=== PATIENT | female | born 1980 | race Caucasian/White ===

== ENCOUNTER 2016-05-31 13:56 | Inpatient (IN) | payer OTHER ==
[~2016-05-31] VITALS: Ht 157.5 cm; Wt 82.0 kg
[2016-05-31 13:58] VITALS: Ht 157.5 cm; Wt 82.0 kg
[2016-05-31] MEDS ORDERED: LABETALOL HCL 20MG INJ IV ONE ×3 (14:30→18:00)
[2016-05-31 14:53] LABS: ADD SCAN DIFF NO
[2016-05-31 14:54] LABS: BASOPHILS % 0.2 % (0.0-2.0); EOSINOPHILS # 0.1 10^3/ul (0.0-0.5); EOSINOPHILS % 0.5 % (0.0-7.0); HEMOGLOBIN 12.7 g/dl (12.0-16.0); LYMPHOCYTES # 1.6 10^3/ul (0.8-2.9); LYMPHOCYTES % 12.5 % (15.0-51.0); MEAN CORPUSCULAR HEMOGLOBIN 28.5 pg (29.0-33.0); MEAN CORPUSCULAR HGB CONC 32.6 g/dl (32.0-37.0); MEAN CORPUSCULAR VOLUME 87.4 fl (82.0-101.0); MEAN PLATELET VOLUME 11.1 fl (7.4-10.4); MONOCYTE # 0.6 10^3/ul (0.3-0.9); MONOCYTES % 4.5 % (0.0-11.0); NEUTROPHIL # 10.5 10^3/ul (1.6-7.5); NEUTROPHILS % 81.8 % (39.0-77.0); PLATELET COUNT 297 10^3/UL (140-415); RED BLOOD COUNT 4.46 10^6/ul (4.20-5.40); RED CELL DISTRIBUTION WIDTH 13.2 % (11.5-14.5); WHITE BLOOD COUNT 12.8 10^3/ul (4.8-10.8)
[2016-05-31] MEDS ORDERED: ONDANSETRON 4 MG INJ IV PRN (15:00)
[2016-05-31] MEDS ORDERED: ACETAMINOPHEN 325 MG TAB PO PRN (15:00)
[2016-05-31 15:07] LABS: POTASSIUM 3.4 mmol/L (3.5-5.1)
[2016-05-31 15:09] LABS: ALBUMIN/GLOBULIN RATIO 1.02; BILIRUBIN,INDIRECT 0.5 mg/dl (0-1.1); BILIRUBIN,TOTAL 0.5 mg/dl (0.2-1.3); CREATININE 0.68 mg/dl (0.44-1.00); TOTAL PROTEIN 7.9 g/dl (6.1-8.1)
[2016-05-31 15:10] LABS: CALCIUM 9.4 mg/dl (8.4-10.2)
--- NOTE | 2016-05-31 15:10 | RADRPT ---
PROCEDURE: US OB. CLINICAL INDICATION: Hypertension. TECHNIQUE: Multiple sonographic images of the uterus were obtained. The images were revi ewed on a PACS workstation. COMPARISON: No prior studies are available for comparison. FINDINGS: There is a single live intrauterine gestation. heart rate is 152 beats per minute. Measurements were made in order to determine age. The results are as follows: BPD = 4.62 cm. HC = 17.03 cm. AC = 14.26 cm. FL = 3.13 cm. Estimated weight is 306 +/- 46 grams. LMP growth percentile is 69 %. Menstrual age by ultrasound dates is 19 weeks 5 days. The estimated date of delivery is 10/20/2016. Maximum vertical pocket of amniotic fluid is 5.2 cm. Position is cephalic and placenta is posterior grade 0. There is no evidence for an abruption or vivine centa previa. IMPRESSION: 1. Single live intrauterine gestation of 19 weeks 5 days menstrual age by ultrasound dates. 2. The estimated date of delivery is 10/20/2016. RPTAT: QQ .Raf Skelton MD, Date Time Electronically viewed and signed by .Raf Skelton MD, on 05/31/2016 15:09 .R/
[2016-05-31 15:15] LABS: ADD UMIC YES; URINE BILIRUBIN (Dip) NEGATIVE (NEGATIVE); URINE BLOOD (Dip) 2+ (NEGATIVE); URINE COLOR LT. YELLOW (YELLOW); URINE GLUCOSE (Dip) NEGATIVE (NEGATIVE); URINE KETONES (Dip) 3+ (NEGATIVE); URINE LEUKOCYTE ESTERASE (Dip) NEGATIVE (NEGATIVE); URINE NITRITE (Dip) NEGATIVE (NEGATIVE); URINE TOTAL PROTEIN (Dip) TRACE (NEGATIVE); URINE UROBILINOGEN (Dip) 0.2 E.U./dL (0.1-1.0)
[2016-05-31] MEDS ORDERED: SOD CHLORIDE 0.9% 1,000 ML IV STA (15:26)
[2016-05-31] MEDS ORDERED: MAGNESIUM SULFATE 4 GM/100 ML 100 ML IVPB ONE (15:30)
[2016-05-31 15:35] LABS: BACTERIA,URINE MODERATE; SQUAMOUS EPITHELIAL CELL,UR MODERATE
--- NOTE | 2016-05-31 16:18 | ERA ---
ER Documentation Chief Complaint Date/Time DATE: 05/31/16 TIME: 16:16 Chief Complaint sent by pmd for htn , 19 weeks preg h/o pre eclampsia last preg HPI Patient is a 36-year-old female with previous preeclampsia who presents with hypertension. The patient is 19 weeks dates. She had high blood pressure at her doctor's office who sent her to the ER for admission. She denies pain. She has no vaginal bleeding. She has had no leg swelling. She has no seizures. She has had no treatment as of yet. Upon review of old medical records the patient one previous visit in 2006 when she did have preeclampsia. Her primary doctor is Dr. Nyasia Peck. ROS All systems reviewed and are negative except as per history of present illness. Medications Home Meds No Active Prescriptions or Reported Meds Allergies Allergies: Coded Allergies: No Known Allergy (Verified , 05/31/16) PMhx/Soc Preeclampsia with previous pregnancies FmHx Family History: No diabetes Physical Exam Vitals Vital Signs Date Time Temp Pulse Resp B/P Pulse Ox O2 Delivery O2 Flow Rate FiO2 05/31/16 15:16 98.3 105 18 195/123 100 Room Air 05/31/16 13:58 98.1 122 18 229/123 100 Physical Exam Const: No acute distress Head: Atraumatic Eyes: Normal Conjunctiva ENT: Normal External Ears, Nose and Mouth. Neck: Full range of motion..~ No meningismus. Resp: Clear to auscultation bilaterally Cardio: Regular rate and rhythm, no murmurs Abd: Soft, non tender, non distended. Normal bowel sounds Skin: No petechiae or rashes Back: No midline or flank tenderness Ext: No cyanosis, or edema Neur: Awake and alert Psych: Normal Mood and Affect Result Diagram: 05/31/16 1442 05/31/16 1442 Results 24 hrs Laboratory Tests Test 05/31/16 14:30 05/31/16 14:42 Urine Color LT. YELLOW Urine Clarity CLEAR Urine pH 5.5 Urine Specific House >=1.030 Urine Ketones 3+ Urine Nitrite NEGATIVE Urine Bilirubin NEGATIVE Urine Urobilinogen 0.2 E.U./dL Urine Leukocyte Esterase NEGATIVE Urine Microscopic RBC 2-5/HPF Urine Microscopic WBC 0-2/HPF Urine Squamous Epithelial Cells MODERATE Urine Bacteria MODERATE Urine Hemoglobin 2+ Urine Glucose NEGATIVE% Urine Total Protein TRACE White Blood Count 12.810^3/ul Red Blood Count 4.4610^6/ul Hemoglobin 12.7g/dl Hematocrit 39.0% Mean Corpuscular Volume 87.4fl Mean Corpuscular Hemoglobin 28.5pg Mean Corpuscular Hemoglobin Concent 32.6g/dl Red Cell Distribution Width 13.2% Platelet Count 90949^3/UL Mean Platelet Volume 11.1fl Neutrophils % 81.8% Lymphocytes % 12.5% Monocytes % 4.5% Eosinophils % 0.5% Basophils % 0.2% Nucleated Red Blood Cells % 0.0/100WBC Neutrophils # 10.510^3/ul Lymphocytes # 1.610^3/ul Monocytes # 0.610^3/ul Eosinophils # 0.110^3/ul Basophils # 0.010^3/ul Nucleated Red Blood Cells # 0.010^3/ul Sodium Level 134mmol/L Potassium Level 3.4mmol/L Chloride Level 100mmol/L Carbon Dioxide Level 22mmol/L Anion Gap 15 Blood Urea Nitrogen 9mg/dl Creatinine 0.68mg/dl Glucose Level 89mg/dl Calcium Level 9.4mg/dl Total Bilirubin 0.5mg/dl Direct Bilirubin 0.00mg/dl Indirect Bilirubin 0.5mg/dl Aspartate Amino Transf (AST/SGOT) 42IU/L Alanine Aminotransferase (ALT/SGPT) 61IU/L Alkaline Phosphatase 94IU/L Total Protein 7.9g/dl Albumin 4.0g/dl Globulin 3.90g/dl Albumin/Globulin Ratio 1.02 Current Medications Medications (Trade) Dose Ordered Sig/Ashleigh Route PRN Reason Start Time Stop Time Status Last Admin Dose Admin Labetalol HCl (Labetalol) 20 mg ONCE ONCE IV 05/31/16 14:30 05/31/16 14:34 DC 05/31/16 14:56 Ondansetron HCl (Zofran Inj) 4 mg BRIDGE ORDER PRN IV NAUSEA AND/OR VOMITING 05/31/16 15:00 06/01/16 14:59 Acetaminophen (Tylenol Tab) 650 mg ER BRIDGE PRN PO MILD PAIN/FEVER 05/31/16 15:00 06/01/16 14:59 Labetalol HCl 20 mg 20 mg ONCE ONCE IV 05/31/16 15:30 05/31/16 15:31 DC 05/31/16 15:35 Magnesium Sulfate 100 ml @ 25 mls/hr ONCE ONCE IVPB 05/31/16 15:30 05/31/16 19:29 05/31/16 15:45 Sodium Chloride (NS) 1,000 ml @ 1,000 mls/hr Q1H STAT IV 05/31/16 15:26 05/31/16 16:25 05/31/16 15:45 Procedures/MDM Patient is a 36-year-old female who presents with -induced hypertension. Her blood pressure was over 200 systolic upon arrival and she needed 2 doses of labetalol 20 mg IV. The patient was given magnesium 4 g over [address] Allen. The patient will be admitted to him as well as he is the labor arrest special education supervisor. The patient will be admitted to a medical surgical bed. She is approximately 19 weeks but an ultrasound has been ordered to determine dates. The ultrasound showed a live IUP at 19 weeks and 5 days. There is trace protein in the urine. The patient is a high risk at this time. There is no leg swelling or seizure activity at this time. Critical Care: Time: 35 minutes excluding all billable procedures. Treatments/Evaluations: Close monitoring and treatment of unstable vital signs, cardiorespiratory, and neurologic status, while maintaining tight balance of fluid, respiratory, and cardiac interventions. Departure Diagnosis: Primary Impression: induced hypertension Qualified Code: O13.2 - induced hypertension, second trimester Condition: Serious ROSITA PORTILLO MD May 31, 2016 16:18
--- NOTE | 2016-05-31 18:32 | CONS ---
Date/Time of Note Date/Time of Note DATE: 05/31/16 TIME: 18:22 Consultation Date/Type/Reason Admit Date/Time May 31, 2069 OB emergency room consult and admission This patient is a 36 years old 5 para 4 who came to emergency room with very high blood pressure is now close to 20 weeks first blood pressure reading was 229/123 in reviewing her past medical history she had 4 other deliveries 1 spontaneous 1 first delivery followed by 3 she says with her second at the severe preeclampsia no other significant finding in her past history On medical examination she is a well-developed well-nourished lady in early . Her ear nose throat appear to be normal neck is normal no neck vein distention no thyromegaly no lymph node enlargement anywhere in her body. Her chest is clear to auscultation percussion no rales Heart normal sinus rhythm no murmur no abnormal signal Chest is clear no rales Abdomen is soft no contractions no tenderness no CVA tenderness heart tones at this time is around 1 4045 no contraction lower extremity slight edema 3+ knee-jerk reflex . Her blood pressure examined her was 195/123 on the ultrasound study that was done the estimated is 19 weeks and 5 days with EDC of 10/02/2016 estimated weight was 306 g 46 g normally grown fetus with these findings with is indicative of severe preeclampsia at this very early she will be admitted in the hospital. We will try to bring the blood pressure under control and will decide with her to terminate this in consultation with the patient Laboratory Tests Test 05/31/16 14:30 05/31/16 14:42 Urine Color LT. YELLOW Urine Clarity CLEAR Urine pH 5.5 Urine Specific [place] >=1.030 Urine Ketones 3+ Urine Nitrite NEGATIVE Urine Bilirubin NEGATIVE Urine Urobilinogen 0.2 E.U./dL Urine Leukocyte Esterase NEGATIVE Urine Microscopic RBC 2-5/HPF Urine Microscopic WBC 0-2/HPF Urine Squamous Epithelial Cells MODERATE Urine Bacteria MODERATE Urine Hemoglobin 2+ Urine Glucose NEGATIVE% Urine Total Protein TRACE White Blood Count 12.810^3/ul Red Blood Count 4.4610^6/ul Hemoglobin 12.7g/dl Hematocrit 39.0% Mean Corpuscular Volume 87.4fl Mean Corpuscular Hemoglobin 28.5pg Mean Corpuscular Hemoglobin Concent 32.6g/dl Red Cell Distribution Width 13.2% Platelet Count 67324^3/UL Mean Platelet Volume 11.1fl Neutrophils % 81.8% Lymphocytes % 12.5% Monocytes % 4.5% Eosinophils % 0.5% Basophils % 0.2% Nucleated Red Blood Cells % 0.0/100WBC Neutrophils # 10.510^3/ul Lymphocytes # 1.610^3/ul Monocytes # 0.610^3/ul Eosinophils # 0.110^3/ul Basophils # 0.010^3/ul Nucleated Red Blood Cells # 0.010^3/ul Sodium Level 134mmol/L Potassium Level 3.4mmol/L Chloride Level 100mmol/L Carbon Dioxide Level 22mmol/L Anion Gap 15 Blood Urea Nitrogen 9mg/dl Creatinine 0.68mg/dl Glucose Level 89mg/dl Calcium Level 9.4mg/dl Total Bilirubin 0.5mg/dl Direct Bilirubin 0.00mg/dl Indirect Bilirubin 0.5mg/dl Aspartate Amino Transf (AST/SGOT) 42IU/L Alanine Aminotransferase (ALT/SGPT) 61IU/L Alkaline Phosphatase 94IU/L Total Protein 7.9g/dl Albumin 4.0g/dl Globulin 3.90g/dl Albumin/Globulin Ratio 1.02 Beta HCG, Quantitative 89927.0mIU/ml Current Medications Medications (Trade) Dose Ordered Sig/Ashleigh Route PRN Reason Start Time Stop Time Status Last Admin Dose Admin Labetalol HCl (Labetalol) 20 mg ONCE ONCE IV 05/31/16 14:30 05/31/16 14:34 DC 05/31/16 14:56 20 MG Ondansetron HCl (Zofran Inj) 4 mg BRIDGE ORDER PRN IV NAUSEA AND/OR VOMITING 05/31/16 15:00 06/01/16 14:59 Acetaminophen (Tylenol Tab) 650 mg ER BRIDGE PRN PO MILD PAIN/FEVER 05/31/16 15:00 06/01/16 14:59 Labetalol HCl 20 mg 20 mg ONCE ONCE IV 05/31/16 15:30 05/31/16 15:31 DC 05/31/16 15:35 20 MG Magnesium Sulfate 100 ml @ 25 mls/hr ONCE ONCE IVPB 05/31/16 15:30 05/31/16 19:29 05/31/16 15:45 25 MLS/HR Sodium Chloride (NS) 1,000 ml @ 1,000 mls/hr Q1H STAT IV 05/31/16 15:26 05/31/16 16:25 DC 05/31/16 15:45 1,000 MLS/HR Labetalol HCl (Labetalol) 20 mg ONCE ONCE IV 05/31/16 18:00 05/31/16 18:01 DC Constitutional: No chills, No diaphoresis, No disoriented, No febrile, No improved, No no complaints, No other, No poor po, No requiring IVF, No requiring O2 Eyes: No discharge, No no complaints, No other, No pain, No redness, No visual change ENT: No bleeding, No congestion, No discharge, No dysphagia, No no complaints, No other, No pain, No sore throat Respiratory: No cough, No no complaints, No other, No pain, No pleuritic pain, No shortness of breath, No sputum, No wheezing Cardiovascular: other (Blood pressure 195/123), No chest pain, No edema, No lightheadedness, No no complaints, No orthopenea , No palpitations, No paroxysmal nocturnal dyspnea Gastrointestinal: No blood, No constipation, No decreased appetite, No diarrhea , No flatus, No nausea, No no complaints, No other, No pain, No passing stool, No vomiting Genitourinary: other (Pelvic exam was not performed), No bleeding, No discharge, No dysuria, No flank pain, No hematuria, No no complaints Musculoskeletal: No back pain, No bone/joint pain, No neck pain, No no complaints, No other, No restricted range of motion, No swelling Skin: No bruising, No erythema, No laceration, No no complaints, No other, No pruritis, No rash, No skin lesions Neurologic: No confusion, No dizziness, No focal-weakness, No headache, No no complaints, No other, No seizure, No syncope Endocrine: other (Knee-jerk reflex is 3+), No dry skin, No no complaints, No polydypsia, No polyuria, No temp intolerance Lymphatic: No adenopathy, No lymphadema, No no complaints, No other, No tender nodes Psychological: No anxiety, No confusion, No depression, No nl mood/affect, No no complaints, No other, No suicidal Additional Comments As I mentioned we will admit the patient for workup and treatment of her extremely high blood pressure Exam/Review of Systems Vital Signs Vitals Vital Signs Date Time Temp Pulse Resp B/P Pulse Ox O2 Delivery O2 Flow Rate FiO2 05/31/16 17:29 98 20 188/107 100 Room Air 05/31/16 15:16 98.3 Results Result Diagram: 05/31/16 1442 05/31/16 1442 Results 24 hrs Laboratory Tests Test 05/31/16 14:30 05/31/16 14:42 Urine Color LT. YELLOW Urine Clarity CLEAR Urine pH 5.5 Urine Specific [place] >=1.030 H Urine Ketones 3+ H Urine Nitrite NEGATIVE Urine Bilirubin NEGATIVE Urine Urobilinogen 0.2 E.U./dL Urine Leukocyte Esterase NEGATIVE Urine Microscopic RBC 2-5 Urine Microscopic WBC 0-2 Urine Squamous Epithelial Cells MODERATE Urine Bacteria MODERATE Urine Hemoglobin 2+ H Urine Glucose NEGATIVE Urine Total Protein TRACE White Blood Count 12.8 H Red Blood Count 4.46 Hemoglobin 12.7 Hematocrit 39.0 Mean Corpuscular Volume 87.4 Mean Corpuscular Hemoglobin 28.5 L Mean Corpuscular Hemoglobin Concent 32.6 Red Cell Distribution Width 13.2 Platelet Count 297 Mean Platelet Volume 11.1 H Neutrophils % 81.8 H Lymphocytes % 12.5 L Monocytes % 4.5 Eosinophils % 0.5 Basophils % 0.2 Nucleated Red Blood Cells % 0.0 Neutrophils # 10.5 H Lymphocytes # 1.6 Monocytes # 0.6 Eosinophils # 0.1 Basophils # 0.0 Nucleated Red Blood Cells # 0.0 Sodium Level 134 L Potassium Level 3.4 L Chloride Level 100 Carbon Dioxide Level 22 Anion Gap 15 Blood Urea Nitrogen 9 Creatinine 0.68 Glucose Level 89 Calcium Level 9.4 Total Bilirubin 0.5 Direct Bilirubin 0.00 Indirect Bilirubin 0.5 Aspartate Amino Transf (AST/SGOT) 42 Alanine Aminotransferase (ALT/SGPT) 61 Alkaline Phosphatase 94 Total Protein 7.9 Albumin 4.0 Globulin 3.90 H Albumin/Globulin Ratio 1.02 Beta HCG, Quantitative 33193.0 Medications Medications Current Medications Magnesium Sulfate (Magnesium Sulfate 4 Gm/100 ml) 100 ml @ 25 mls/hr ONCE ONCE IVPB Last administered on 05/31/16t 15:45; Admin Dose 25 MLS/HR; Start 01/06 at 15:30; Stop 05/31/16 at 19:29 ANJANA RICHARD MD May 31, 2016 18:32
[2016-05-31 19:44] VITALS: BP 166/72; PULSE 74; RESP 17
[2016-05-31 19:45] VITALS: TEMP 98.1
[2016-05-31] MEDS: METHYLDOPA 250 MG TAB PO SCH (21:46)
--- NOTE | 2016-05-31 23:11 | PN ---
Date/Time of Note Date/Time of Note DATE: 05/31/16 TIME: 23:04 OB Subjective Subjective Subjective NO SUBJECTIVE SYMPTOMS HX OF SECOND AND THIRD COMPLICATED BY HTN FH OF HTN (MOM) LAST SECTION 9YRS AGO ONLY ONE TIME CK IN 9YRS OB Objective Objective Objective latest BP 163/92 u/s GA 19W5D 306 +-40GM OB Assessment/Plan Other Assessment: IUP 19W5D MORE LIKELY CHRONIC HYPERTENSION Other plan: START METHYL DOPA 250MG TID TO START WITH LUCAS CONSULT MIRZA REY MD May 31, 2016 23:11
[2016-06-01] MEDS: METHYLDOPA 250 MG TAB PO SCH ×2 (06:16→13:59)
[2016-06-01] MEDS: NACL 0.9% 3 ML SYG IV SCH ×2 (10:42→17:58)
--- NOTE | 2016-06-01 18:03 | PN ---
Date/Time of Note Date/Time of Note DATE: 06/01/16 TIME: 17:58 OB Subjective Subjective Subjective Denies any headache, blurred vision, epigastric pain, leaking of fluid, vaginal bleeding, uterine contractions. OB Objective Objective Objective GA: A&O, NAD Abdomen: Soft, gravid, fundal height consistent with gestational age No abdominal tenderness Extremities: No calf tenderness,, no click, no cords palpable, Hematology - 72 Hrs Test 05/31/16 14:42 White Blood Count 12.810^3/ul (4.8-10.8) H Red Blood Count 4.4610^6/ul (4.20-5.40) Hemoglobin 12.7g/dl (12.0-16.0) Hematocrit 39.0% (37.0-47.0) Mean Corpuscular Volume 87.4fl (82.0-101.0) Mean Corpuscular Hemoglobin 28.5pg (29.0-33.0) L Mean Corpuscular Hemoglobin Concent 32.6g/dl (32.0-37.0) Red Cell Distribution Width 13.2% (11.5-14.5) Platelet Count 79525^3/UL (140-415) Mean Platelet Volume 11.1fl (7.4-10.4) H Neutrophils % 81.8% (39.0-77.0) H Lymphocytes % 12.5% (15.0-51.0) L Monocytes % 4.5% (0.0-11.0) Eosinophils % 0.5% (0.0-7.0) Basophils % 0.2% (0.0-2.0) Nucleated Red Blood Cells % 0.0/100WBC (0.0-0.0) Neutrophils # 10.510^3/ul (1.6-7.5) H Lymphocytes # 1.610^3/ul (0.8-2.9) Monocytes # 0.610^3/ul (0.3-0.9) Eosinophils # 0.110^3/ul (0.0-0.5) Basophils # 0.010^3/ul (0.0-0.1) Nucleated Red Blood Cells # 0.010^3/ul (0.0-0.0) Chemistry Test 05/31/16 14:42 Sodium Level 134mmol/L (135-144) L Potassium Level 3.4mmol/L (3.5-5.1) L Chloride Level 100mmol/L (97-110) Carbon Dioxide Level 22mmol/L (21-31) Anion Gap 15 (8-16) Blood Urea Nitrogen 9mg/dl (7-20) Creatinine 0.68mg/dl (0.44-1.00) Glucose Level 89mg/dl (70-220) Calcium Level 9.4mg/dl (8.4-10.2) Total Bilirubin 0.5mg/dl (0.2-1.3) Direct Bilirubin 0.00mg/dl (0.00-0.20) Indirect Bilirubin 0.5mg/dl (0-1.1) Aspartate Amino Transf (AST/SGOT) 42IU/L (15-46) Alanine Aminotransferase (ALT/SGPT) 61IU/L (13-69) Alkaline Phosphatase 94IU/L (42-121) Total Protein 7.9g/dl (6.1-8.1) Albumin 4.0g/dl (3.3-4.9) Globulin 3.90g/dl (1.3-3.2) H Albumin/Globulin Ratio 1.02 Beta HCG, Quantitative 83457.0mIU/ml Chemistry Test 05/31/16 14:42 Sodium Level 134mmol/L (135-144) Potassium Level 3.4mmol/L (3.5-5.1) Chloride Level 100mmol/L (97-110) Carbon Dioxide Level 22mmol/L (21-31) Anion Gap 15 (8-16) Blood Urea Nitrogen 9mg/dl (7-20) Creatinine 0.68mg/dl (0.44-1.00) Glucose Level 89mg/dl (70-220) Calcium Level 9.4mg/dl (8.4-10.2) Total Bilirubin 0.5mg/dl (0.2-1.3) Direct Bilirubin 0.00mg/dl (0.00-0.20) Indirect Bilirubin 0.5mg/dl (0-1.1) Aspartate Amino Transf (AST/SGOT) 42IU/L (15-46) Alanine Aminotransferase (ALT/SGPT) 61IU/L (13-69) Alkaline Phosphatase 94IU/L (42-121) Total Protein 7.9g/dl (6.1-8.1) Albumin 4.0g/dl (3.3-4.9) Globulin 3.90g/dl (1.3-3.2) Albumin/Globulin Ratio 1.02 Beta HCG, Quantitative 21601.0mIU/ml OB Assessment/Plan Other Assessment: IUP at 19 weeks and 2 days Elevated blood pressure. Labile. Likely chronic hypertension Patient with prior history of preeclampsia in prior to pregnancies status post delivery at 7 and 8 months Currently blood pressure is still labile, with methyldopa 3 times daily. Jimmy' s between 110-170/90 Will start baby aspirin I would think patient would benefit from slow release calcium channel blockers, nifedipine XR 60 Will be started today and will replace methdopa continue 24 hour protein collection for baseline We will continue follow-up with blood pressures Low-sodium diet TIFF CHURCHILL MD Jun 01, 2016 18:02
[2016-06-01] MEDS: ASPIRIN 81 MG TAB PO SCH (18:08)
[2016-06-01] MEDS ORDERED: hydrALAzine 20 MG INJ ONE (19:15)
[2016-06-01] MEDS: NIFEdipine (XL) 60 MG TAB PO SCH (19:26)
[2016-06-01] MEDS ORDERED: hydrALAzine 20 MG INJ IV ONE ×2 (19:30→20:00)
[2016-06-02] MEDS: ASPIRIN 81 MG TAB PO SCH (08:55)
[2016-06-02] MEDS: NIFEdipine (XL) 60 MG TAB PO SCH (08:55)
[2016-06-02 12:00] LABS: SCRET 0.59 mg/dl (0.44-1.00)
--- NOTE | 2016-06-02 12:13 | PN ---
Date/Time of Note Date/Time of Note DATE: 06/02/16 TIME: 12:08 OB Subjective Subjective Subjective June 02, 2069 Hospital around This patient is a 36 years old 5 para 4 who came to emergency room 2 days ago with very high blood pressure is now close to 20 weeks .Her first blood pressure reading was 229/123. On reviewing her past medical history, she had 4 other deliveries; first delivery was spontaneous , followed by 3 She says with her second developed severe preeclampsia No other significant finding in her past history With treatment she slightly improved .Today her blood pressure running around 145/86 . Her PIH studies and a 24-hour urine collection is in process Her blood pressure medication was changed to long acting Procardia XL 60 mg daily. Today again she has a fairly sharp knee-jerk reflex No contraction heart tone is normal On physical examination she has not changed much from the previous findings. Dr. Grace he has seen the patient Laboratory Tests Test 06/02/16 08:30 Urine Random Creatinine 41.14mg/dl Urine Collection Duration 24hrs Urine Total Volume 24 Hours 3000ml/24hrs Urine Creatinine Timed 24hrs Creatinine Clearance 145.3mls/min Urine Total Volume (Protein) 3000mls Urine Total Protein 24 Hour 330.0mg/24hrs Current Medications Medications (Trade) Dose Ordered Sig/Ashleigh Route PRN Reason Start Time Stop Time Status Last Admin Dose Admin Labetalol HCl (Labetalol) 20 mg ONCE ONCE IV 05/31/16 14:30 05/31/16 14:34 DC 05/31/16 14:56 Ondansetron HCl (Zofran Inj) 4 mg BRIDGE ORDER PRN IV NAUSEA AND/OR VOMITING 05/31/16 15:00 06/01/16 14:59 DC Acetaminophen (Tylenol Tab) 650 mg ER BRIDGE PRN PO MILD PAIN/FEVER 05/31/16 15:00 06/01/16 14:59 DC Labetalol HCl 20 mg 20 mg ONCE ONCE IV 05/31/16 15:30 05/31/16 15:31 DC 05/31/16 15:35 Magnesium Sulfate 100 ml @ 25 mls/hr ONCE ONCE IVPB 05/31/16 15:30 05/31/16 19:29 DC 05/31/16 15:45 Sodium Chloride (NS) 1,000 ml @ 1,000 mls/hr Q1H STAT IV 05/31/16 15:26 05/31/16 16:25 DC 05/31/16 15:45 Labetalol HCl (Labetalol) 20 mg ONCE ONCE IV 05/31/16 18:00 05/31/16 18:01 DC 05/31/16 18:49 IV Flush (NS 3 ml) 3 ml PER PROTOCOL IV 05/31/16 21:00 06/01/16 17:58 Methyldopa (Aldomet) 250 mg Q8 PO 05/31/16 22:00 06/01/16 17:43 DC 06/01/16 13:59 Nifedipine (Procardia Xl) 60 mg DAILY PO 06/01/16 18:30 06/02/16 08:55 Aspirin (Aspirin) 81 mg DAILY PO 06/01/16 18:00 06/02/16 08:55 Hydralazine HCl (Apresoline) 5 mg ONCE ONCE IV 06/01/16 19:30 06/01/16 19:31 DC 06/01/16 19:20 Hydralazine HCl (Apresoline) 20 mg STK-MED ONCE .ROUTE 06/01/16 19:15 06/01/16 19:16 DC Hydralazine HCl (Apresoline) 5 mg ONCE ONCE IV 06/01/16 20:00 06/01/16 20:01 DC 06/01/16 19:56 We will continue her monitoring in the hospital for now. End of dictation ANJANA RICHARD MD Jun 02, 2016 12:13
[2016-06-02] MEDS ORDERED: METHYLDOPA 250 MG TAB PO SCH (14:00)
[2016-06-02] MEDS: NACL 0.9% 3 ML SYG IV SCH ×2 (16:54→22:04)
[2016-06-02] MEDS: METHYLDOPA 500 MG TAB PO SCH (22:03)
[2016-06-03] MEDS: METHYLDOPA 500 MG TAB PO SCH ×3 (06:05→21:46)
[2016-06-03] MEDS: NIFEdipine (XL) 30 MG TAB PO SCH (09:03)
[2016-06-03] MEDS: ASPIRIN 81 MG TAB PO SCH (09:03)
--- NOTE | 2016-06-03 13:44 | QN ---
Documentation Comment IUP at 19+wks GA BP 150/90s Elevated blood pressure. Labile. Likely chronic hypertension Patient with prior history of preeclampsia in prior to pregnancies status post delivery at 7 and 8 months Currently blood pressure is still labile, The dosage of her BP medication increased yesterday We will continue follow-up with blood pressures Low-sodium diet Perinatalogy consult management as per perinatalogist SHERLYN MATTHEWS M.D. Jun 03, 2016 13:43
[2016-06-04] MEDS: METHYLDOPA 500 MG TAB PO SCH ×3 (05:45→21:55)
[2016-06-04] MEDS: ASPIRIN 81 MG TAB PO SCH (09:21)
[2016-06-04] MEDS: NIFEdipine (XL) 30 MG TAB PO SCH (09:22)
--- NOTE | 2016-06-04 10:46 | QN ---
Documentation Comment Laborist S: pt denies c/o. Reports normal FM, denies LOF, VB, UCs, headache, visual changes or RUQ pain. O: BP 128/72 (on review, BPs this AM 110-140s/70s-80s, BPs yesterday evening 160s-180s/100-120s CV: RRR, nl s1s2 Resp: CTAB Abd: soft, NTND Ext: bilateral LE nontender, no edema FHT: HD#5 for 36yo at 20+2 admitted for severe range BPs in the setting of hx of PreE in prior pregnancies. 24hr protein resulted in 330mg likely suggestive of cHTN with pre-existing proteinuria. S/p MFM consult. On Aldomet 500mg TID, Procardia 30XL and ASA 81mg. -> Pt asymptomatic with mild range BPs this AM -> BP meds increased yesterday evening, thus will observe BPs during the course of today -> If BPs remain mild range, per Dr. Gonzales's recommendations, pt will be okay for discharge Plan d/w pt. Questions answered to her satisfaction ANA LEON MD Jun 04, 2016 10:46
[2016-06-05] MEDS: METHYLDOPA 500 MG TAB PO SCH ×2 (05:58→13:50)
[2016-06-05] MEDS: ASPIRIN 81 MG TAB PO SCH (08:27)
[2016-06-05] MEDS: NIFEdipine (XL) 30 MG TAB PO SCH (08:28)
--- NOTE | 2016-06-05 15:40 | PD.PPDC ---
SALESPERSON PARTS Discharge Instruction Condition Patient Condition: Good Follow-up Follow-up with Physician: 2 Provider Information: follow up with your obgyn in 1-2 days Return to clinic for GUEST SERVICES COORDINATOR Instructions: Worsening abdominal pain OB Instructions: Blurried Vision Headache CELI GRANDE MD Jun 05, 2016 15:40
--- NOTE | 2016-06-05 19:34 | DS ---
DATE OF ADMISSION: 05/31/2016 DATE OF DISCHARGE: DISCHARGE DIAGNOSES: 1. Intrauterine at 20 weeks. 2. Chronic hypertension. HISTORY AND HOSPITAL COURSE: The patient is a 36-year-old G5, P4 presents at 20-3/7 weeks from the clinic for elevated blood pressures. At this point, , blood pressure control, started on Aldom et 500 t.i.d. and also Procardia-XL 5 mg p.o. every day. The patient over the course of several day s had blood pressure stabilized, now 120s to 130s mostly. Some elevated ones but the patient remain ed asymptomatic. No nausea, vomiting, fevers or chills. Good movement. Laboratory work with in normal limits. A 24-hour urine was 330, which was consistent with probable chronic hypertension. DISCHARGE: The patient was discharged home in stable condition, the patient has no complaints. ___ __ heart tones. Patient was discharged home, on Aldomet 500 p.o. t.i.d. and also Procardia-XL 10 mg p.o. every day. The patient follow up with her DIRECTOR CLINICAL OPERATIONS within 1-2 days. ER precautions given. The patient is stable upon discharge. Dictated By: CELI GRANDE MD /NTS Conf#: [id number] DID#: [id number]
== END 2016-06-05 16:30 | disposition home or self-care (01) | DRG 781 ==
LOC: E/R 13:56 → OBG 14:32
DX: O10.912 Unspecified pre-existing hypertension complicating pregnancy, second trimester (principal); O34.219 Maternal care for unspecified type scar from previous cesarean delivery; Z3A.20 20 weeks gestation of pregnancy
CPT/HCPCS: 36415; 76805; 80053; 81001; 81003; 82575; 84156; 84702; 85025; 86900; 86901; 96374; 96375; 96376; J0360; J7030

== ENCOUNTER 2016-09-02 20:38 | Inpatient (IN) | payer OTHER ==
[~2016-09-02] VITALS: Ht 152.4 cm; Wt 85.5 kg
[2016-09-02 21:00] LABS: URINE BLOOD (Dip) POC 3+ (NEGATIVE)
[2016-09-02] MEDS ORDERED: LABETALOL HCL 20MG INJ ONE (21:18)
[2016-09-02] MEDS ORDERED: MAGNESIUM SULFATE 4 GM/100 ML 100 ML ONE (21:58)
[2016-09-02] MEDS ORDERED: METHYLERGONOVINE 0.2 MG INJ IM PRN (22:00)
[2016-09-02] MEDS ORDERED: MISOPROSTOL 200 MCG TAB PR PRN (22:00)
[2016-09-02] MEDS ORDERED: OXYTOCIN 30 UNITS/LR 500 ML IV PRN (22:00)
[2016-09-02] MEDS: LABETALOL HCL 20MG INJ IV PRN ×3 (22:00→23:20)
[2016-09-02] MEDS ORDERED: CARBOPROST 250 MCG INJ IM PRN (22:00)
[2016-09-02] MEDS ORDERED: LIDOCAINE 1% (MPF) 30 ML INJ INJ PRN (22:00)
[2016-09-02] MEDS ORDERED: MAGNESIUM SULFATE 4 GM/100 ML 100 ML IVPB ONE (22:00)
[2016-09-02] MEDS ORDERED: LABETALOL HCL 20MG INJ IV ONE (22:04)
[2016-09-02] MEDS: BETAMET NA PHOS/AC(6 MG/ML) 5ML INJ IM SCH (22:23)
[2016-09-02] MEDS ORDERED: LABETALOL HCL 20MG INJ IV SCH (22:30)
[2016-09-02 22:32] LABS: ADD SCAN DIFF NO
[2016-09-02 22:34] LABS: ABNORMAL IP MESSAGE 1; HEMATOCRIT 33.2 % (37.0-47.0); HEMOGLOBIN 10.7 g/dl (12.0-16.0); MEAN CORPUSCULAR HEMOGLOBIN 30.5 pg (29.0-33.0); MEAN CORPUSCULAR HGB CONC 32.2 g/dl (32.0-37.0); MEAN CORPUSCULAR VOLUME 94.6 fl (82.0-101.0); PLATELET COUNT 84 10^3/UL (140-415); RED BLOOD COUNT 3.51 10^6/ul (4.20-5.40); RED CELL DISTRIBUTION WIDTH 18.8 % (11.5-14.5); WHITE BLOOD COUNT 10.1 10^3/ul (4.8-10.8)
[2016-09-02] MEDS: MAGNESIUM SULFATE 20 GM/500 ML 500 ML IV SCH (22:40)
[2016-09-02 22:57] LABS: INR 0.91; PROTIME 12.3 Sec (12.2-14.2)
[2016-09-02 22:58] LABS: PARTIAL THROMBOPLASTIN TIME 35.9 Sec (25.0-35.0)
[2016-09-02 23:08] LABS: ALBUMIN 3.3 g/dl (3.3-4.9); ALBUMIN/GLOBULIN RATIO 1.06; BILIRUBIN,INDIRECT 0.8 mg/dl (0-1.1); BILIRUBIN,TOTAL 0.8 mg/dl (0.2-1.3); CALCIUM 8.5 mg/dl (8.4-10.2); CREATININE 1.43 mg/dl (0.44-1.00); POTASSIUM 4.9 mmol/L (3.5-5.1); TOTAL PROTEIN 6.4 g/dl (6.1-8.1); URIC ACID 8.2 mg/dl (3.1-7.9)
--- NOTE | 2016-09-02 23:28 | RADRPT ---
PROCEDURE: OB ultrasound for biophysical profile CLINICAL INDICATION: Biophysical profile. . Hypertension TECHNIQUE: Multiple sonographic images of the pelvis were obtained. Transabdominal views are obta ined. COMPARISON: 05/31/2016 FINDINGS: Single intrauterine gestation. Presentation: Cephalic. Placenta: Posterior No evidence of placental abruption. No evidence of placenta previa. breathing movement = 2/2 tone = 2/2 motion = 2/2 DAHLIA = 2/2 DAHLIA = 8.7 cm heart rate: 122 beats per minute IMPRESSION: Single intrauterine gestation. Biophysical profile 09/27 RPTAT: AADD .Charlie Whatley MD, MD Date Time Electronically viewed and signed by .Charlie Whatley MD, on 09/02/2016 23:27 .B/
--- NOTE | 2016-09-02 23:30 | RADRPT ---
PROCEDURE: Obstetrical ultrasound. CLINICAL INDICATION: , evaluation. Pelvic pain. TECHNIQUE: Transabdominal sonographic images of the pelvis are obtained. COMPARISON: 05/31/2016 FINDINGS: Single intrauterine gestation. There is a cephalic presentation. Measurements were made in order to determine age. The results are as follows: BPD = 8.47 cm 34 weeks 1 day HC = 30.98 cm 34 weeks 1 day AC = 29.87 cm 89-bosjl-3-day FL = 6.59 cm 03-qkwfn-3-day Heart rate = 144 beats per minute The placenta is posterior. There is no evidence for an abruption or placenta previa. Ovaries are not visualized. IMPRESSION: Single intrauterine gestation of approximately 34 weeks 1 days by ultrasound criteria. [place] estimated weight = 2320 g; 67 percentile for gestational age of 33 weeks 1 days. RPTAT: AADD .Charlie Whatley MD, MD Date Time Electronically viewed and signed by .Charlie Whatley MD, on 09/02/2016 23:30 .B/
[2016-09-02 23:45] LABS: LYMPHOCYTES # 1.8 10^3/ul (0.8-2.9); MONOCYTE # 0.7 10^3/ul (0.3-0.9); NEUTROPHIL # 7.6 10^3/ul (1.6-7.5)
--- NOTE | 2016-09-02 23:45 | TRIAGE ---
OB Triage Datetime Report Generated by CPN: 09/02/2016 23:44 Datetime: 09/02/2016 21:05 Time of Arrival: 09/02/2016 20:35 EGA: 33.1 Arrived By: Wheelchair Arrived From: Home Chief Complaint: hx c/s x3, PTD at 7mos for PIH, HTN at 19 wks, no PNC. C/O ucs and epigastri c pain Movement: Present Contractions: Irregular Time Contractions Began: 09/02/2016 18:00 Contractions: Q20 Rupture of Membranes: Denies Vaginal Bleeding: None Vaginal Discharge: Denies Recent Sexual Intercouse: Denies Abdominal Trauma: Not Applicable Patient Complaints: Contractions; Epigastric Pain; Dependent Edema Time Provider Notified: 09/02/2016 21:07 Provider Notified: Dr Richardson Initial Plan: EFM Datetime: 06/05/2016 15:43 Maternal Assessment Level of Consciousness: Fully Conscious DTR's/Clonus: DTRs 2+ Headache: Denies Blurred Vision: No Nausea/Vomiting: Denies RUQ Epigastric Pain: Denies Facial Edema: None Labor Evaluation Frequency: 0 Duration (sec)2399: 0 Heart Rate FHR Baseline Rate: 160 Pain Assessment Pain Scale: 0 Pain Goal: 0 Vaginal Exam Membrane Status: Intact Datetime: 06/05/2016 13:51 Maternal Assessment Level of Consciousness: Fully Conscious DTR's/Clonus: DTRs 2+ Headache: Denies Blurred Vision: No Nausea/Vomiting: Denies RUQ Epigastric Pain: Denies Facial Edema: None Contraction Comments: off Comments: off Pain Assessment Pain Scale: 0 Pain Presence: None/Denies Pain Type: N/A Pain Goal: 0 Datetime: 06/05/2016 12:07 Heart Rate FHR Baseline Rate: 165 Datetime: 06/05/2016 12:05 Maternal Assessment Level of Consciousness: Fully Conscious DTR's/Clonus: DTRs 2+ Headache: Denies Blurred Vision: No Respiratory Effort: Unlabored Breath Sounds, Left: Clear and Equal Breath Sounds, Right: Clear and Equal Nausea/Vomiting: Denies RUQ Epigastric Pain: Denies Facial Edema: None Contraction Comments: off Heart Rate FHR Baseline Rate: 165 Pain Assessment Pain Scale: 0 Pain Presence: None/Denies Pain Type: N/A Pain Goal: 0 Datetime: 06/05/2016 11:00 Maternal Assessment Level of Consciousness: Fully Conscious Headache: Denies Blurred Vision: No Nausea/Vomiting: Denies RUQ Epigastric Pain: Denies Facial Edema: None Labor Evaluation Frequency: off Contraction Comments: off Comments: off Pain Assessment Pain Scale: 0 Pain Presence: None/Denies Pain Type: N/A Pain Goal: 0 Pain Relief Measures: Comfort Measures Vaginal Exam Membrane Status: Intact Datetime: 06/05/2016 07:39 Maternal Assessment Level of Consciousness: Fully Conscious Headache: Denies Blurred Vision: No Nausea/Vomiting: Denies RUQ Epigastric Pain: Denies Facial Edema: None Contraction Comments: OFF Comments: OFF Pain Assessment Pain Scale: 0 Pain Presence: None/Denies Pain Type: N/A Pain Goal: 0 Vaginal Exam Membrane Status: Intact Datetime: 06/05/2016 07:38 Assessment Type: Ongoing Assessment Maternal Assessment Level of Consciousness: Fully Conscious DTR's/Clonus: DTRs 2+; No Clonus Headache: Denies Blurred Vision: No Respiratory Effort: Unlabored; Regular Rhythm; Equal Expansion Breath Sounds, Left: Clear and Equal Breath Sounds, Right: Clear and Equal Nausea/Vomiting: Denies RUQ Epigastric Pain: Denies Lower Extremities Edema: None Degree: None Upper Extremities Edema: None Degree: None Facial Edema: None Fall Risk Assessment History of Falling: (0) No Secondary Diagnosis: (0) No Ambulatory Aid: (0) Bedrest/Nurse Assist IV Therapy: (0) No Gait: (0) Normal/Bedrest/Immobile Mental Status: (0) Oriented to Own Ability Fall Score: 0 Fall Risk Score Definition: No Risk: No action required Datetime: 06/05/2016 05:56 Stage of : Antepartum Temperature Route: Oral Datetime: 06/05/2016 00:23 Stage of : Antepartum Temperature Route: Oral Datetime: 06/04/2016 19:39 Assessment Type: Ongoing Assessment Maternal Assessment Level of Consciousness: Fully Conscious DTR's/Clonus: DTRs 2+; No Clonus Headache: Denies Blurred Vision: No Respiratory Effort: Unlabored; Regular Rhythm; Equal Expansion Breath Sounds, Left: Clear and Equal Breath Sounds, Right: Clear and Equal Nausea/Vomiting: Denies RUQ Epigastric Pain: Denies Lower Extremities Edema: None Degree: None Upper Extremities Edema: None Degree: None Facial Edema: None Fall Risk Assessment History of Falling: (0) No Secondary Diagnosis: (0) No Ambulatory Aid: (0) Bedrest/Nurse Assist IV Therapy: (0) No Gait: (0) Normal/Bedrest/Immobile Mental Status: (0) Oriented to Own Ability Fall Score: 0 Fall Risk Score Definition: No Risk: No action required Datetime: 06/04/2016 19:37 Comments: FHTs auscultated via EFM with FHR 156-168. Pt states FM noted. Datetime: 06/04/2016 19:35 Stage of : Antepartum Temperature Route: Oral Datetime: 06/04/2016 16:08 Monitor Mode: External US (Annotations: 160,BABY SHANNAN AT THE TIME,AUDIBLE) Datetime: 06/04/2016 16:07 Stage of : Antepartum Temperature Route: Oral Pain Assessment Pain Scale: 0 Pain Presence: None/Denies Pain Goal: 0 Datetime: 06/04/2016 16:02 Stage of : Antepartum Datetime: 06/04/2016 14:57 Stage of : Antepartum Temperature Route: Oral Pain Assessment Pain Scale: 0 Pain Presence: None/Denies Datetime: 06/04/2016 14:53 Stage of : Antepartum Datetime: 06/04/2016 09:28 Stage of : Antepartum Datetime: 06/04/2016 08:04 Heart Rate FHR Baseline Rate: 160 (Annotations: STRONG AND REGULAR AT [facility]) Monitor Mode: External US Datetime: 06/04/2016 07:54 Assessment Type: Ongoing Assessment Maternal Assessment Level of Consciousness: Fully Conscious DTR's/Clonus: DTRs 2+; No Clonus Headache: Denies Blurred Vision: No Respiratory Effort: Unlabored; Regular Rhythm; Equal Expansion Breath Sounds, Left: Clear and Equal Breath Sounds, Right: Clear and Equal Nausea/Vomiting: Denies RUQ Epigastric Pain: Denies Lower Extremities Edema: None Degree: None Upper Extremities Edema: None Degree: None Facial Edema: None Fall Risk Assessment History of Falling: (0) No Secondary Diagnosis: (0) No Ambulatory Aid: (0) Bedrest/Nurse Assist IV Therapy: (0) No Gait: (0) Normal/Bedrest/Immobile Mental Status: (0) Oriented to Own Ability Fall Score: 0 Fall Risk Score Definition: No Risk: No action required Datetime: 06/04/2016 07:52 Stage of : Antepartum Temperature Route: Oral Pain Assessment Pain Scale: 0 Pain Presence: None/Denies Pain Goal: 0 Datetime: 06/04/2016 07:49 Stage of : Antepartum Datetime: 06/04/2016 07:05 Stage of : Antepartum Datetime: 06/04/2016 05:45 Stage of : Antepartum Maternal Assessment Level of Consciousness: Fully Conscious Headache: Denies RUQ Epigastric Pain: Denies Temperature Route: Oral Contraction Comments: PT DENIES CRAMPING Comments: PT STATES + FM Pain Presence: None/Denies Datetime: 06/04/2016 04:10 Stage of : Antepartum Pain Presence: None/Denies Pain Type: N/A Pain Assessment Comments: PT SLEEPING WITH EVEN UNLABORED BREATHING Datetime: 06/04/2016 02:41 Stage of : Antepartum Pain Presence: None/Denies Pain Type: N/A Pain Assessment Comments: PT DENIES ANY NEEDS AT THIS TIME Datetime: 06/04/2016 01:35 Stage of : Antepartum Pain Presence: None/Denies Pain Type: N/A Pain Assessment Comments: PT SLEEPING WITH EVEN UNLABORED BREATHING Datetime: 06/03/2016 23:52 Stage of : Antepartum Maternal Assessment Level of Consciousness: Fully Conscious DTR's/Clonus: DTRs 2+; No Clonus Headache: Denies Nausea/Vomiting: Denies RUQ Epigastric Pain: Denies Temperature Route: Oral Contraction Comments: PT DENIES CRAMPING Comments: PT STATES + FM Pain Presence: None/Denies Pain Type: N/A Datetime: 06/03/2016 21:46 Stage of : Antepartum Pain Presence: None/Denies Pain Type: N/A Datetime: 06/03/2016 19:49 Stage of : Antepartum Assessment Type: Ongoing Assessment Maternal Assessment Level of Consciousness: Fully Conscious DTR's/Clonus: DTRs 2+; No Clonus Headache: Denies Blurred Vision: No Respiratory Effort: Unlabored; Regular Rhythm; Equal Expansion Breath Sounds, Left: Clear and Equal Breath Sounds, Right: Clear and Equal Nausea/Vomiting: Denies RUQ Epigastric Pain: Denies Lower Extremities Edema: None Degree: None Upper Extremities Edema: None Degree: None Facial Edema: None Temperature Route: Oral Fall Risk Assessment History of Falling: (0) No Secondary Diagnosis: (0) No Ambulatory Aid: (0) Bedrest/Nurse Assist IV Therapy: (0) No Gait: (0) Normal/Bedrest/Immobile Mental Status: (0) Oriented to Own Ability Fall Score: 0 Fall Risk Score Definition: No Risk: No action required Contraction Comments: PT DENIES CRAMPING Heart Rate FHR Baseline Rate: 155 Monitor Mode: Doppler Pain Presence: None/Denies Pain Type: N/A Datetime: 06/03/2016 17:44 Maternal Assessment Level of Consciousness: Fully Conscious Blurred Vision: No Nausea/Vomiting: Denies RUQ Epigastric Pain: Denies Facial Edema: None Pain Presence: None/Denies Datetime: 06/03/2016 14:37 Maternal Assessment Level of Consciousness: Fully Conscious Blurred Vision: No Nausea/Vomiting: Denies RUQ Epigastric Pain: Denies Facial Edema: None Pain Presence: None/Denies Datetime: 06/03/2016 11:36 Maternal Assessment Level of Consciousness: Fully Conscious Blurred Vision: No Nausea/Vomiting: Denies RUQ Epigastric Pain: Denies Facial Edema: None Datetime: 06/03/2016 10:35 Maternal Assessment Level of Consciousness: Fully Conscious Blurred Vision: No Nausea/Vomiting: Denies RUQ Epigastric Pain: Denies Facial Edema: None Pain Presence: None/Denies Datetime: 06/03/2016 08:16 Assessment Type: Ongoing Assessment Maternal Assessment Level of Consciousness: Fully Conscious DTR's/Clonus: DTRs 2+; No Clonus Headache: Denies Blurred Vision: No Respiratory Effort: Unlabored; Regular Rhythm; Equal Expansion Breath Sounds, Left: Clear and Equal Breath Sounds, Right: Clear and Equal Nausea/Vomiting: Denies RUQ Epigastric Pain: Denies Facial Edema: None Fall Risk Assessment History of Falling: (0) No Secondary Diagnosis: (0) No Ambulatory Aid: (0) Bedrest/Nurse Assist IV Therapy: (0) No Gait: (0) Normal/Bedrest/Immobile Mental Status: (0) Oriented to Own Ability Fall Score: 0 Fall Risk Score Definition: No Risk: No action required Datetime: 06/03/2016 08:04 Maternal Assessment Level of Consciousness: Fully Conscious Headache: Denies Blurred Vision: No Nausea/Vomiting: Denies RUQ Epigastric Pain: Denies Facial Edema: None Contraction Comments: denies Heart Rate FHR Baseline Rate: 150 Comments: 20 weeks Datetime: 06/02/2016 23:50 Stage of : Antepartum Pain Presence: None/Denies Datetime: 06/02/2016 23:14 Stage of : Antepartum Datetime: 06/02/2016 20:00 Stage of : Antepartum Temperature Route: Oral Pain Presence: None/Denies Datetime: 06/02/2016 19:45 Assessment Type: Ongoing Assessment Maternal Assessment Level of Consciousness: Fully Conscious DTR's/Clonus: DTRs 2+; No Clonus Headache: Denies Blurred Vision: No Respiratory Effort: Unlabored; Regular Rhythm; Equal Expansion Nausea/Vomiting: Denies RUQ Epigastric Pain: Denies Lower Extremities Edema: None Upper Extremities Edema: None Facial Edema: None Fall Risk Assessment History of Falling: (0) No Secondary Diagnosis: (0) No Ambulatory Aid: (0) Bedrest/Nurse Assist IV Therapy: (0) No Gait: (0) Normal/Bedrest/Immobile Mental Status: (0) Oriented to Own Ability Fall Score: 0 Fall Risk Score Definition: No Risk: No action required Datetime: 06/02/2016 19:00 Maternal Assessment Level of Consciousness: Fully Conscious Datetime: 06/02/2016 15:46 Maternal Assessment Level of Consciousness: Fully Conscious DTR's/Clonus: DTRs 2+ Headache: Denies Breath Sounds, Left: Clear and Equal Breath Sounds, Right: Clear and Equal Nausea/Vomiting: Denies RUQ Epigastric Pain: Denies Temperature Route: Oral Pain Assessment Pain Scale: 0 Pain Presence: None/Denies Pain Type: N/A Pain Goal: 0 Datetime: 06/02/2016 13:25 Stage of : Antepartum Datetime: 06/02/2016 11:44 Temperature Route: Oral Pain Assessment Pain Scale: 0 Pain Presence: None/Denies Pain Type: N/A Pain Goal: 0 Datetime: 06/02/2016 11:16 Stage of : Antepartum Maternal Assessment Level of Consciousness: Fully Conscious DTR's/Clonus: DTRs 2+ Headache: Denies Breath Sounds, Left: Clear and Equal Breath Sounds, Right: Clear and Equal Nausea/Vomiting: Denies RUQ Epigastric Pain: Denies Datetime: 06/02/2016 08:30 Stage of : Antepartum Datetime: 06/02/2016 07:44 Stage of : Antepartum Temperature Route: Oral Pain Assessment Pain Scale: 0 Pain Presence: None/Denies Pain Type: N/A Pain Goal: 0 Datetime: 06/02/2016 07:33 Stage of : Antepartum Assessment Type: Ongoing Assessment Maternal Assessment Level of Consciousness: Fully Conscious DTR's/Clonus: DTRs 2+; No Clonus Headache: Denies Blurred Vision: No Respiratory Effort: Unlabored; Regular Rhythm; Equal Expansion Breath Sounds, Left: Clear and Equal Breath Sounds, Right: Clear and Equal Nausea/Vomiting: Denies RUQ Epigastric Pain: Denies Lower Extremities Edema: None Degree: None Upper Extremities Edema: None Degree: None Facial Edema: None Temperature Route: Oral Fall Risk Assessment History of Falling: (0) No Secondary Diagnosis: (0) No Ambulatory Aid: (0) Bedrest/Nurse Assist IV Therapy: (0) No Gait: (0) Normal/Bedrest/Immobile Mental Status: (0) Oriented to Own Ability Fall Score: 0 Fall Risk Score Definition: No Risk: No action required Heart Rate FHR Baseline Rate: 155 Monitor Mode: Doppler Pain Assessment Pain Scale: 0 Pain Presence: None/Denies Pain Type: N/A Datetime: 06/02/2016 06:15 Stage of : Antepartum Datetime: 06/01/2016 20:05 Stage of : Antepartum Datetime: 06/01/2016 19:56 Stage of : Antepartum Datetime: 06/01/2016 19:45 Stage of : Antepartum Datetime: 06/01/2016 19:38 Stage of : Antepartum Assessment Type: Ongoing Assessment Maternal Assessment Level of Consciousness: Fully Conscious DTR's/Clonus: DTRs 2+; No Clonus Headache: Denies Blurred Vision: No Respiratory Effort: Unlabored; Regular Rhythm; Equal Expansion Breath Sounds, Left: Clear and Equal Breath Sounds, Right: Clear and Equal Nausea/Vomiting: Denies RUQ Epigastric Pain: Denies Lower Extremities Edema: None Degree: None Upper Extremities Edema: None Degree: None Facial Edema: None Fall Risk Assessment History of Falling: (0) No Secondary Diagnosis: (0) No Ambulatory Aid: (0) Bedrest/Nurse Assist IV Therapy: (0) No Gait: (0) Normal/Bedrest/Immobile Mental Status: (0) Oriented to Own Ability Fall Score: 0 Fall Risk Score Definition: No Risk: No action required Pain Assessment Pain Scale: 0 Pain Presence: None/Denies Pain Type: N/A Pain Goal: 2 Datetime: 06/01/2016 19:32 Stage of : Antepartum Datetime: 06/01/2016 19:26 Stage of : Antepartum Datetime: 06/01/2016 17:39 Stage of : Antepartum Datetime: 06/01/2016 12:01 Temperature Route: Oral Datetime: 06/01/2016 10:08 Stage of : Antepartum Datetime: 06/01/2016 08:38 Stage of : Antepartum Temperature Route: Oral Pain Assessment Pain Scale: 0 Pain Presence: None/Denies Pain Type: N/A Pain Goal: 0 Datetime: 06/01/2016 08:30 Assessment Type: Ongoing Assessment Maternal Assessment Level of Consciousness: Fully Conscious DTR's/Clonus: DTRs 2+; No Clonus Headache: Denies Blurred Vision: No Respiratory Effort: Unlabored; Regular Rhythm; Equal Expansion Breath Sounds, Left: Clear and Equal Breath Sounds, Right: Clear and Equal Nausea/Vomiting: Denies RUQ Epigastric Pain: Denies Lower Extremities Edema: Bilateral Lower Extremities Degree: 1+ Upper Extremities Edema: None Degree: None Facial Edema: None Fall Risk Assessment History of Falling: (0) No Secondary Diagnosis: (0) No Ambulatory Aid: (0) Bedrest/Nurse Assist IV Therapy: (20) Yes Gait: (0) Normal/Bedrest/Immobile Mental Status: (0) Oriented to Own Ability Fall Score: 20 Fall Risk Score Definition: No Risk: No action required Datetime: 06/01/2016 06:01 Stage of : Antepartum Pain Assessment Pain Scale: 0 Pain Presence: None/Denies Pain Type: N/A Pain Goal: 0 Datetime: 06/01/2016 05:01 Stage of : Antepartum Pain Assessment Pain Scale: 0 Pain Presence: None/Denies Pain Type: N/A Pain Goal: 0 Datetime: 06/01/2016 05:00 Maternal Assessment Level of Consciousness: Fully Conscious DTR's/Clonus: DTRs 2+; No Clonus Headache: Denies Blurred Vision: No Breath Sounds, Left: Clear and Equal Breath Sounds, Right: Clear and Equal Nausea/Vomiting: Denies RUQ Epigastric Pain: Denies Facial Edema: None Datetime: 06/01/2016 04:01 Stage of : Antepartum Pain Assessment Pain Scale: 0 Pain Presence: None/Denies Pain Goal: 0 Datetime: 06/01/2016 03:00 Stage of : Antepartum Maternal Assessment Level of Consciousness: Fully Conscious DTR's/Clonus: DTRs 2+; No Clonus Headache: Denies Blurred Vision: No Breath Sounds, Left: Clear and Equal Breath Sounds, Right: Clear and Equal Nausea/Vomiting: Denies RUQ Epigastric Pain: Denies Facial Edema: None Pain Assessment Pain Scale: 0 Pain Presence: None/Denies Pain Type: N/A Pain Goal: 0 Datetime: 06/01/2016 02:01 Stage of : Antepartum Pain Assessment Pain Scale: 0 Pain Presence: None/Denies Pain Goal: 0 Datetime: 06/01/2016 01:00 Stage of : Antepartum Maternal Assessment Level of Consciousness: Fully Conscious DTR's/Clonus: DTRs 2+; No Clonus Headache: Denies Blurred Vision: No Breath Sounds, Left: Clear and Equal Breath Sounds, Right: Clear and Equal Nausea/Vomiting: Denies RUQ Epigastric Pain: Denies Facial Edema: None Pain Assessment Pain Scale: 0 Pain Presence: None/Denies Pain Type: N/A Pain Goal: 0 Datetime: 06/01/2016 00:01 Stage of : Antepartum Pain Assessment Pain Scale: 0 Pain Presence: None/Denies Pain Type: N/A Pain Goal: 0 Datetime: 05/31/2016 23:00 Stage of : Antepartum Maternal Assessment Level of Consciousness: Fully Conscious DTR's/Clonus: DTRs 2+; No Clonus Headache: Denies Blurred Vision: No Breath Sounds, Left: Clear and Equal Breath Sounds, Right: Clear and Equal Nausea/Vomiting: Denies RUQ Epigastric Pain: Denies Facial Edema: None Datetime: 05/31/2016 21:46 Stage of : Antepartum Datetime: 05/31/2016 21:35 Stage of : Antepartum Datetime: 05/31/2016 21:15 Stage of : Antepartum Datetime: 05/31/2016 21:08 Stage of : Antepartum Datetime: 05/31/2016 20:40 Stage of : Antepartum Assessment Type: Admission Assessment Vaginal Bleeding: None Maternal Assessment Level of Consciousness: Fully Conscious DTR's/Clonus: DTRs 2+; No Clonus Headache: Denies Blurred Vision: No Respiratory Effort: Unlabored; Regular Rhythm; Equal Expansion Breath Sounds, Left: Clear and Equal Breath Sounds, Right: Clear and Equal Nausea/Vomiting: Denies RUQ Epigastric Pain: Denies Lower Extremities Edema: Bilateral Lower Extremities Degree: 1+ Upper Extremities Edema: None Degree: None Facial Edema: None Fall Risk Assessment History of Falling: (0) No Secondary Diagnosis: (0) No Ambulatory Aid: (0) Bedrest/Nurse Assist IV Therapy: (20) Yes Gait: (0) Normal/Bedrest/Immobile Mental Status: (0) Oriented to Own Ability Fall Score: 20 Fall Risk Score Definition: No Risk: No action required Pain Assessment Pain Scale: 0 Pain Presence: None/Denies Pain Type: N/A Datetime: 05/31/2016 20:14 Arrived By: Transfer Arrived From: Emergency Dept
[2016-09-02 23:46] LABS: PLATELET ESTIMATE PLT APPEAR DECREASED
[2016-09-03] VITALS (23 sets, daily range): BP systolic 108–177; BP diastolic 70–109; PULSE 52–76; RESP 9–19
[2016-09-03] MEDS: LABETALOL HCL 20MG INJ IV PRN ×3 (00:20→18:58)
[2016-09-03] MEDS ORDERED: LABETALOL HCL 20MG INJ IV ONE (00:30)
[2016-09-03] MEDS ORDERED: morphine SULFATE/PF (10 MG/10 ML) INJ ONE (00:39)
[2016-09-03] MEDS ORDERED: DEXAMETHASONE 4 MG/ML 1 ML INJ ONE (00:39)
[2016-09-03] MEDS ORDERED: METOCLOPRAMIDE 10 MG INJ ONE (00:39)
[2016-09-03] MEDS ORDERED: OXYTOCIN 10 UNIT INJ ONE (00:39)
[2016-09-03] MEDS ORDERED: PHENYLephrine (100 MCG/ML) 5ML SYG ONE (00:39)
[2016-09-03] MEDS ORDERED: ONDANSETRON 4 MG INJ ONE (00:39)
[2016-09-03] MEDS ORDERED: KETOROLAC 30 MG INJ ONE (00:39)
[2016-09-03] MEDS ORDERED: CITRIC ACID/NA CITRATE 30 ML CUP PO ONE (01:00)
[2016-09-03] MEDS ORDERED: ONDANSETRON 4 MG INJ IV ONE (01:00)
[2016-09-03] MEDS ORDERED: hydrALAzine 20 MG INJ ONE (01:22)
[2016-09-03] MEDS ORDERED: hydrALAzine 20 MG INJ IV PRN (02:00)
[2016-09-03] MEDS ORDERED: EPHEDrine SULFATE 50 MG/5 ML SYG IV PRN (02:00)
[2016-09-03] MEDS ORDERED: ONDANSETRON 4 MG INJ IV PRN (02:00)
[2016-09-03] MEDS ORDERED: HYDROmorphONE 1 MG/ML SYG IV PRN ×2 (02:00)
[2016-09-03] MEDS ORDERED: NALOXONE (0.4 MG/ML) INJ IV PRN (02:00)
[2016-09-03] MEDS ORDERED: NALBUPHINE HCL (10 MG/1 ML) INJ IV PRN (02:00)
[2016-09-03] MEDS ORDERED: morphine 4 MG/ML VIAL IV PRN (02:00)
[2016-09-03] MEDS ORDERED: HYDROCODONE/APAP (5/325) TAB PO PRN (02:00)
[2016-09-03] MEDS ORDERED: morphine 2 MG INJ IV PRN (02:00)
[2016-09-03] MEDS ORDERED: LABETALOL HCL 20MG INJ IV PRN (02:00)
[2016-09-03] MEDS ORDERED: DIPHENHYDRAMINE 50 MG INJ IV PRN ×2 (02:00)
[2016-09-03] MEDS ORDERED: KETOROLAC 30 MG INJ IV PRN (02:00)
[2016-09-03] MEDS ORDERED: ALBUMIN HUMAN 5% 250 ML IV PRN (02:00)
[2016-09-03] MEDS ORDERED: MEPERIDINE 25 MG INJ IV PRN (02:00)
[2016-09-03] MEDS ORDERED: ACETAMINOPHEN 500 MG TAB PO PRN (02:00)
[2016-09-03 02:25] LABS: AADO2 Cord Arterial 69.1 mmHg; Arterial Cord Blood pCO2 56.9 mmHG (25-50); CBA Base Excess -10.7 mmol/L; CBA Oxygen Sat 16.9 mmHG; CBA Total Hemglobin 15.9 g/dl; Cord Blood Arterial pO2 12.5 mmHG (15.0-45.0); Fraction OxyHgb Cord Arterial 16.5 %; MODE ROOM AIR; MetHgb Cord Arterial 1.9 %
[2016-09-03 02:28] LABS: CBV Base Excess -9.4 mmol/L; CBV COHb 0.6 %; CBV Total Hemglobin 15.9 g/dl; Cord Blood Venous AADO2 75.7 mmHg; Cord Blood Venous pO2 13.1 mmHG (15.0-45.0); Fraction OxyHgb Cord Venous 21.5 %; MODE ROOM AIR; MetHgb Cord Venous 1.8 %; Sample Type Blood venous
[2016-09-03] MEDS ORDERED: MAGNESIUM SULFATE 20 GM/500 ML 500 ML IV SCH (02:30)
--- NOTE | 2016-09-03 03:08 | OPR ---
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
[2016-09-03 05:02] LABS: ADD SCAN DIFF NO
[2016-09-03 05:06] LABS: ABNORMAL IP MESSAGE 1; BASOPHILS % 0.3 % (0.0-2.0); EOSINOPHILS % 0.1 % (0.0-7.0); HEMATOCRIT 30.5 % (37.0-47.0); HEMOGLOBIN 9.8 g/dl (12.0-16.0); LYMPHOCYTES # 0.9 10^3/ul (0.8-2.9); LYMPHOCYTES % 9.3 % (15.0-51.0); MEAN CORPUSCULAR HEMOGLOBIN 30.6 pg (29.0-33.0); MEAN CORPUSCULAR HGB CONC 32.1 g/dl (32.0-37.0); MEAN CORPUSCULAR VOLUME 95.3 fl (82.0-101.0); MEAN PLATELET VOLUME 12.6 fl (7.4-10.4); MONOCYTE # 0.1 10^3/ul (0.3-0.9); MONOCYTES % 1.1 % (0.0-11.0); NEUTROPHIL # 8.2 10^3/ul (1.6-7.5); NEUTROPHILS % 84.2 % (39.0-77.0); NUCLEATED RED BLOOD CELLS # 0.1 10^3/ul (0.0-0.0); NUCLEATED RED BLOOD CELLS% 0.6 /100WBC (0.0-0.0); PLATELET COUNT 85 10^3/UL (140-415); RED CELL DISTRIBUTION WIDTH 19.1 % (11.5-14.5); WHITE BLOOD COUNT 9.8 10^3/ul (4.8-10.8)
[2016-09-03 05:43] LABS: ALBUMIN 2.9 g/dl (3.3-4.9); BILIRUBIN,INDIRECT 0.3 mg/dl (0-1.1); BILIRUBIN,TOTAL 0.3 mg/dl (0.2-1.3); CALCIUM 8.1 mg/dl (8.4-10.2); CREATININE 1.49 mg/dl (0.44-1.00); POTASSIUM 5.4 mmol/L (3.5-5.1); TOTAL PROTEIN 5.8 g/dl (6.1-8.1)
[2016-09-03 05:44] LABS: ADD UMIC YES; UR BLOOD (Dip) 3+ (NEGATIVE); UR CLARITY CLOUDY (CLEAR); UR COLOR YELLOW (YELLOW); UR GLUCOSE (Dip) NEGATIVE (NEGATIVE); UR KETONES (Dip) NEGATIVE (NEGATIVE); UR LEUKOCYTE ESTERASE (Dip) NEGATIVE (NEGATIVE); UR NITRITE (Dip) NEGATIVE (NEGATIVE); UR TOTAL PROTEIN (Dip) 4+ (NEGATIVE); UR UROBILINOGEN (Dip) 1.0 E.U./dL (0.1-1.0)
[2016-09-03 05:56] LABS: UR BILIRUBIN (Dip) NEGATIVE (NEGATIVE)
[2016-09-03 05:58] LABS: UR SQUAMOUS EPITHELIAL CELL MANY /HPF (FEW); URINE RBCS 25-50 /HPF (0)
[2016-09-03 05:59] LABS: UR BACTERIA FEW /HPF (NONE SEEN); UR TRANSITIONAL EPI CELL MANY /HPF (NONE SEEN)
[2016-09-03] MEDS: LACTATED RINGER'S 1,000 ML IV SCH ×3 (06:20→20:46)
--- NOTE | 2016-09-03 06:50 | CONS ---
Date/Time of Note Date/Time of Note DATE: 09/03/16 TIME: 06:44 Assessment/Plan Assessment/Plan Chief Complaint/Hosp Course This is a 36-year-old female being admitted to the ICU floor for: #1 severe -induced hypertension/preeclampsia: Patient was seen to have blood pressures in the systolic of 260. Patient had blood pressure medications given during surgery. She delivered without any complications. At the current time patient's blood pressure is ranging from the 130-150s systolically. With a diastolic of approximately 95-105. We will continue to monitor her blood pressure and provide as needed hydralazine 5 mg to maintain blood pressure within the range of 130-150 systolic and 90-95 diastolic. Her urine labs did show protein however patient did not have any seizures. She did receive magnesium. Advised outpatient monitoring of blood pressure upon discharge. #2 Suspected hellp syndrome: Patient has thrombocytopenia as well as elevated liver function tests however no signs of hemolytic anemia. Bilirubin is within normal values. Will continue to monitor the patient. Will check haptoglobin. Also order right upper quadrant liver ultrasound secondary to elevated liver function test. #3 IUP status post : POD #1 continue postop care. Continue OB postop care management. #4 DVT and GI prophylaxis: SCDs, protonis Further treatment strategy will be implemented as per the clinical course Greater than 40 minutes of critical care time was spent on the history and physical assessment and plan of the patient. Problems: Consultation Date/Type/Reason Admit Date/Time Sep 02, 2016 at 22:18 Date of Consultation: Sep 03, 2016 Type of Consultation: Medical management Reason for Consultation PIH, help syndrome, hypertensive crisis Hx of Present Illness Chief complaint: Severely elevated blood pressure This is a 36-year-old now, female who is status post . Patient was noted to have severely elevated blood pressures in the 260s systolic range and low platelets. Presented with contractions. Patient was taken immediately to the OR and had a repeat low segment transverse . During her operative report she was given blood pressure medications of hydralazine and labetalol. She was also noted to have low platelets. Patient was subsequently brought to the ICU after her delivery for closer management of her blood pressures. She is on oxytocin and LR status post her . The current time her blood pressure is in the 150 systolic range and 95-100 diastolic range. She denies any headaches or chest pain or shortness of breath. She does state though that she has some numbness of her lower extremities however this is thought to possibly be secondary to the medication she receives in a C- section as per the OB doctor. Allergies: NKDA Medications: See MAR Const: As per HPI Eyes : No pain discharge or redness or change in visual acuity ENT: No pain, sore throat, congestion, congestion, dysphagia or discharge Respiratory: No shortness of breath, cough, sputum, wheezing, or pleuritic pain Cardiovascular: No chest pain, palpitation, PND, or edema GI : Mild pain from surgical scar from Genitourinary: No dysuria, hematuria, flank pain , discharge or CVA tenderness Musculoskeletal: As per HPI Skin: No rash, bruising or hives Neuro: As per HPI Endocrine: No polyuria, polydipsia, temperature intolerance Psych: No hallucination, depression, anxiety or suicidal ideation Past Medical History History of gestational hypertension and previous Past Surgical History 4 Family History Significant Family History: hypertension (Mom) Social History Alcohol Use: none Smoking Status: Never smoker Drug Use: none Exam/Review of Systems Vital Signs Vitals Vital Signs Date Time Temp Pulse Resp B/P Pulse Ox O2 Delivery O2 Flow Rate FiO2 09/03/16 06:00 65 14 131/83 100 Nasal Cannula 2.0 09/03/16 03:00 98.3 Intake and Output 09/02/16 09/02/16 09/03/16 15:00 23:00 07:00 Output Total 235 ml Balance -235 ml Exam General: Patient is well-developed female in no acute distress status post C- section HEENT: Atraumatic, normocephalic. The pupils are equal, round and reactive. Extraocular motor are intact Neck: Supple with full range of motion. No rigidity or meningismus Chest: Nontender Lungs: Clear to auscultation bilaterally no crackles rales or wheezing Heart: Normal S1-S2, Regular rhythm and rate. No murmur, S3, or S4 Abdomen: Soft , nontender, nondistended , bowel sounds are present. No guarding no rebound tenderness , No masses or organomegaly. No costovertebral temporal angle mass Extremities: Trace edema of the bilateral lower extremities. Neurologic: Normal mental status, speech normal, cranial nerves II through XII are intact, motor and sensory are intact, she does report mild numbness of her bilateral lower extremities from the level of the jorge down Results Result Diagram: 09/03/16 0443 09/03/16 0443 Results 24 hrs Laboratory Tests Test 09/02/16 20:45 09/02/16 21:05 09/03/16 00:59 09/03/16 02:17 White Blood Count 10.1 # Red Blood Count 3.51 #L Hemoglobin 10.7 L Hematocrit 33.2 L Mean Corpuscular Volume 94.6 Mean Corpuscular Hemoglobin 30.5 Mean Corpuscular Hemoglobin Concent 32.2 Red Cell Distribution Width 18.8 #H Platelet Count 84 #L Mean Platelet Volume Neutrophils % 75.0 Lymphocytes % 18.0 Monocytes % 7.0 Neutrophils # 7.6 H Lymphocytes # 1.8 Monocytes # 0.7 Platelet Estimate PLT APPEAR DECREASED Prothrombin Time 12.3 Prothrombin Time Ratio 1.0 INR International Normalized Ratio 0.91 Activated Partial Thromboplast Time 35.9 H Sodium Level 137 Potassium Level 4.9 Chloride Level 105 Carbon Dioxide Level 20 L Anion Gap 17 H Blood Urea Nitrogen 26 H Creatinine 1.43 H Glucose Level 81 Uric Acid 8.2 H Calcium Level 8.5 Total Bilirubin 0.8 Direct Bilirubin 0.00 Indirect Bilirubin 0.8 Aspartate Amino Transf (AST/SGOT) 152 H Alanine Aminotransferase (ALT/SGPT) 99 H Alkaline Phosphatase 249 H Total Protein 6.4 Albumin 3.3 Globulin 3.10 Albumin/Globulin Ratio 1.06 Hepatitis B Surface Antigen NEGATIVE Bedside Urine pH (LAB) 5.5 Bedside Urine Protein (LAB) 3+ H Bedside Urine Glucose (UA) Negative Bedside Urine Ketones (LAB) Negative Bedside Urine Blood 3+ H Bedside Urine Nitrite (LAB) Negative Bedside Urine Leukocyte Esterase (L Negative Magnesium Level 5.6 *H Blood Gas Specimen Source Blood arterial Arterial Blood Date Drawn 09/03/2016 2:21:23 AM Arterial Blood Gas Puncture Site CORD Justin Test N/A Cord Blood Carboxyhemoglobin 0.3 Cord Arterial Blood pH 7.141 L Cord Arterial Blood PCO2 56.9 H Cord Arterial Blood PO2 12.5 L Cord Arterial Blood HCO3 19.0 L Cord Arterial Blood Base Excess -10.7 POC Cord Arterial Blood O2 Sat 16.9 Cord Arterial Blood Hemoglobin 15.9 Cord Arterial Blood Oxyhemoglobin 16.5 Cord Arterial Blood Methemoglobin 1.9 Blood Gas A-a O2 Differential 69.1 Blood Gas Temperature 37.0 Blood Gas Modality ROOM AIR FiO2 21.0 Blood Gas Critical Value Read Back Adams ONEILL RN Blood Gas Notified Whom AP Blood Gas Notified Time 09/03/2016 2:25:33 AM Test 09/03/16 02:18 09/03/16 03:00 09/03/16 04:43 Blood Gas Specimen Source Blood venous Arterial Blood Date Drawn 09/03/2016 2:24:00 AM Arterial Blood Gas Puncture Site CORD Justin Test N/A Cord Blood Carboxyhemoglobin 0.6 Cord Venous Blood pH 7.192 Cord Venous Blood PCO2 50.9 H Cord Venous Blood PO2 13.1 L Cord Venous Blood HCO3 19.1 L Cord Venous Blood Base Excess -9.4 POC Cord Venous Blood Oxygen Sat 22.0 Cord Venous Blood Hemoglobin 15.9 Cord Venous Blood Oxyhemoglobin 21.5 Cord Venous Blood Methemoglobin 1.8 Blood Gas A-a O2 Differential 75.7 Blood Gas Temperature 37.0 Blood Gas Modality ROOM AIR FiO2 21.0 Blood Gas Critical Value Read Back Adams ONEILL RN Blood Gas Notified Whom AP Blood Gas Notified Time 09/03/2016 2:28:35 AM Urine Color YELLOW Urine Clarity CLOUDY Urine pH 5.5 Urine Specific [place] >=1.030 H Urine Ketones NEGATIVE Urine Nitrite NEGATIVE Urine Bilirubin NEGATIVE Urine Urobilinogen 1.0 E.U./dL Urine Leukocyte Esterase NEGATIVE Urine Microscopic RBC 25-50 Urine Microscopic WBC 2-5 Urine Squamous Epithelial Cells MANY Urine Transitional Epithelial Cells MANY Urine Bacteria FEW A Urine Granular Casts OCCASIONAL Urine Hemoglobin 3+ H Urine Glucose NEGATIVE Urine Total Protein 4+ H White Blood Count 9.8 Red Blood Count 3.20 L Hemoglobin 9.8 L Hematocrit 30.5 L Mean Corpuscular Volume 95.3 Mean Corpuscular Hemoglobin 30.6 Mean Corpuscular Hemoglobin Concent 32.1 Red Cell Distribution Width 19.1 H Platelet Count 85 L Mean Platelet Volume 12.6 H Neutrophils % 84.2 H Lymphocytes % 9.3 L Monocytes % 1.1 Eosinophils % 0.1 Basophils % 0.3 Nucleated Red Blood Cells % 0.6 H Neutrophils # 8.2 H Lymphocytes # 0.9 Monocytes # 0.1 L Eosinophils # 0.0 Basophils # 0.0 Nucleated Red Blood Cells # 0.1 H Sodium Level 136 Potassium Level 5.4 H Chloride Level 104 Carbon Dioxide Level 19 L Anion Gap 18 H Blood Urea Nitrogen 25 H Creatinine 1.49 H Glucose Level 134 # Calcium Level 8.1 L Total Bilirubin 0.3 Direct Bilirubin 0.00 Indirect Bilirubin 0.3 Aspartate Amino Transf (AST/SGOT) 117 H Alanine Aminotransferase (ALT/SGPT) 95 H Alkaline Phosphatase 227 H Total Protein 5.8 L Albumin 2.9 L Globulin 2.90 Albumin/Globulin Ratio 1.00 Medications Medications Current Medications Oxytocin/Lactated Ringer's 500 ml @ 0 mls/hr ONCE PRN IV For Hemorrhage Management; Start 09/02/16 at 22:00 Methylergonovine Maleate (Methergine) 0.2 mg ONCE PRN IM VAGINAL BLEEDING; Start 09/02/16 at 22:00 Carboprost Tromethamine (Hemabate) 250 mcg ONCE PRN IM VAGINAL BLEEDING; Start 09/02/16 at 22:00 Misoprostol 1000 mcg 1,000 mcg ONCE PRN [place] VAGINAL BLEEDING; Start 09/02/16 at 22:00 Lactated Ringer's (Lr) 1,000 ml @ 75 mls/hr [id number] IV Last administered on 06:20; Admin Dose 75 MLS/HR; Start 09/02/16 at 21:43 Lidocaine 30 ml 30 ml ONCE PRN INJ EPISIOTOMY/TEARING; Start 09/02/16 at 22:00 Magnesium Sulfate (Magnesium Sulfate 20 Gm/500 ml) 500 ml @ 50 mls/hr Q10H IV Last administered on 09/02/16 22:40; Admin Dose 50 MLS/HR; Start 09/02/16 at 22 :30 Labetalol HCl (Labetalol) 20 mg OC PRN IV IV PROTOCOL Last administered on 09/03 00:40; Admin Dose 20 MG; Start 09/02/16 at 22:00 Betamethasone Acet/Betameth SodPhos ([place] Soluspan) 12 mg Q12H IM Last administered on 09/02/16 22:23; Admin Dose 12 MG; Start 09/02/16 at 22:30; Stop 09/03/16 at 10:31 Labetalol HCl (Labetalol) 20 mg Q10MIN PRN IV ELEVATED BLOOD PRESSURE Last administered on 09/02/16 23:20; Admin Dose 20 MG; Start 09/02/16 at 22:30 Hydromorphone HCl (Dilaudid) 0.2 mg Q2H PRN IV PAIN LEVEL 1-5; Start 09/03/16 at 02:00; Stop 09/04/16 at 01:24 Hydromorphone HCl (Dilaudid) 0.4 mg Q2H PRN IV PAIN LEVEL 6-10; Start 09/03/16 at 02:00; Stop 09/04/16 at 01:24 Morphine Sulfate (morphine) 2 mg Q2H PRN IV PAIN LEVEL 1-5; Start 09/03/16 at 02:00; Stop 09/04/16 at 01:24 Morphine Sulfate (morphine) 4 mg Q2H PRN IV PAIN LEVEL 6-10; Start 09/03/16 at 02:00; Stop 09/04/16 at 01:24 Ketorolac Tromethamine (Toradol) 30 mg Q6H PRN IV PAIN LEVEL 6-10; Start at 02:00; Stop 09/04/16 at 01:24 Acetaminophen (Tylenol Tab) 500 mg Q4H PRN PO PAIN LEVEL 1-3; Start 09/03/16 at 02:00; Stop 09/04/16 at 01:24 Acetaminophen/ Hydrocodone Bitart ([place] (5/325)) 1 tab Q4H PRN PO PAIN LEVEL 4 -6; Start 09/03/16 at 02:00; Stop 09/04/16 at 01:24 Diphenhydramine HCl (Benadryl) 25 mg Q4H PRN IV PRURITUS; Start 09/03/16 at 02: 00; Stop 09/04/16 at 01:24 Nalbuphine HCl (Nubain) 10 mg Q4H PRN IV PRURITUS; Start 09/03/16 at 02:00; Stop 09/04/16 at 01:24 Ondansetron HCl (Zofran Inj) 4 mg Q6H PRN IV NAUSEA AND/OR VOMITING; Start at 02:00; Stop 09/04/16 at 01:24 Naloxone HCl 0.2 mg 0.2 mg Q2M PRN IV FOR RESP RATE 8 OR LESS; Start 09/03/16 at 02:00; Stop 09/04/16 at 01:24 Magnesium Sulfate (Magnesium Sulfate 20 Gm/500 ml) 500 ml @ 25 mls/hr Q20H IV Last administered on 09/03/16t 03:28; Admin Dose 25 MLS/HR; Start 09/03/16 at 02 :30; Stop 09/04/16 at 07:00 BREE KONG Sep 03, 2016 06:50
[2016-09-03 07:42] LABS: BARBITURATES Negative (NEGATIVE); BENZODIAZEPINES Negative (NEGATIVE); CANNABINOIDS Negative (NEGATIVE); COCAINE Negative (NEGATIVE); OPIATES Negative (NEGATIVE)
[2016-09-03] MEDS: MAGNESIUM SULFATE 20 GM/500 ML 500 ML IV SCH ×2 (09:31→10:26)
--- NOTE | 2016-09-03 10:26 | QN ---
Documentation Comment POD#1 is stable afebrile No VB +flatus +Adequate urine VS stable Gen NAD Abd Soft NT ND Dressing be removed Genitalia No blood at perinium --->Ambulation --->Stop Mg 24 hours after the delivery SHERLYN MATTHEWS M.D. Sep 03, 2016 10:26
[2016-09-03 11:14] LABS: ADD SCAN DIFF NO
[2016-09-03 11:21] LABS: ABNORMAL IP MESSAGE 1; BASOPHILS % 0.1 % (0.0-2.0); HEMATOCRIT 25.2 % (37.0-47.0); HEMOGLOBIN 7.7 g/dl (12.0-16.0); LYMPHOCYTES # 1.3 10^3/ul (0.8-2.9); MEAN CORPUSCULAR HEMOGLOBIN 30.2 pg (29.0-33.0); MEAN CORPUSCULAR HGB CONC 30.6 g/dl (32.0-37.0); MEAN CORPUSCULAR VOLUME 98.8 fl (82.0-101.0); MEAN PLATELET VOLUME 13.5 fl (7.4-10.4); MONOCYTE # 0.2 10^3/ul (0.3-0.9); MONOCYTES % 1.9 % (0.0-11.0); NEUTROPHIL # 9.4 10^3/ul (1.6-7.5); NEUTROPHILS % 84.6 % (39.0-77.0); NUCLEATED RED BLOOD CELLS # 0.1 10^3/ul (0.0-0.0); NUCLEATED RED BLOOD CELLS% 0.6 /100WBC (0.0-0.0); PLATELET COUNT 110 10^3/UL (140-415); RED BLOOD COUNT 2.55 10^6/ul (4.20-5.40); RED CELL DISTRIBUTION WIDTH 19.7 % (11.5-14.5); WHITE BLOOD COUNT 11.1 10^3/ul (4.8-10.8)
[2016-09-03 12:06] LABS: ALBUMIN 2.4 g/dl (3.3-4.9); ALBUMIN/GLOBULIN RATIO 0.88; BILIRUBIN,INDIRECT 0.2 mg/dl (0-1.1); BILIRUBIN,TOTAL 0.2 mg/dl (0.2-1.3); CALCIUM 7.7 mg/dl (8.4-10.2); CREATININE 1.76 mg/dl (0.44-1.00); POTASSIUM 5.8 mmol/L (3.5-5.1); TOTAL PROTEIN 5.1 g/dl (6.1-8.1)
[2016-09-03] MEDS ORDERED: SOD CHLORIDE 0.9% 500 ML IV ONE ×2 (12:30→21:00)
[2016-09-03] MEDS: BETAMET NA PHOS/AC(6 MG/ML) 5ML INJ IM SCH (13:06)
[2016-09-03 18:12] LABS: ADD SCAN DIFF NO
[2016-09-03 18:14] LABS: ABNORMAL IP MESSAGE 1; BASOPHILS % 0.1 % (0.0-2.0); HEMATOCRIT 26.4 % (37.0-47.0); HEMOGLOBIN 7.9 g/dl (12.0-16.0); LYMPHOCYTES # 1.8 10^3/ul (0.8-2.9); LYMPHOCYTES % 10.8 % (15.0-51.0); MEAN CORPUSCULAR HEMOGLOBIN 29.9 pg (29.0-33.0); MEAN CORPUSCULAR HGB CONC 29.9 g/dl (32.0-37.0); MEAN PLATELET VOLUME 13.5 fl (7.4-10.4); MONOCYTE # 0.4 10^3/ul (0.3-0.9); MONOCYTES % 2.5 % (0.0-11.0); NEUTROPHIL # 13.8 10^3/ul (1.6-7.5); NEUTROPHILS % 84.8 % (39.0-77.0); NUCLEATED RED BLOOD CELLS # 0.1 10^3/ul (0.0-0.0); NUCLEATED RED BLOOD CELLS% 0.7 /100WBC (0.0-0.0); PLATELET COUNT 136 10^3/UL (140-415); RED BLOOD COUNT 2.64 10^6/ul (4.20-5.40); RED CELL DISTRIBUTION WIDTH 19.8 % (11.5-14.5); WHITE BLOOD COUNT 16.3 10^3/ul (4.8-10.8)
[2016-09-03] MEDS: hydrALAzine 20 MG INJ IV PRN (20:48)
[2016-09-03] MEDS: SOD CHLORIDE 0.9% 1,000 ML IV SCH (21:00)
--- NOTE | 2016-09-03 23:28 | QN ---
Documentation Comment Laborist Spoke with Hospitalist caring for patient overnight 2/2 concern for low UOP in the setting of rising creatinine (1.76 from 1.43). Meanwhile AST/ALT are trending downwards and Plts are trending upwards. Likely etiology of acute kidney injury is HELLP syndrome. Pt however also has hx of poorly controlled cHTN and there is possibly an element of chronic renal disease accompanying hypertensive disease. Would recommend use of Lasix with caution given pt is likely intravascularly depleted due to HELLP syndrome, although there is a role for Lasix should pulmonary edema 2/2 fluid overload become a concern. Would recommend renal consult as well given possible progression to acute tubular necrosis. ANA LEON MD Sep 03, 2016 23:27
[2016-09-04] VITALS (33 sets, daily range): BP systolic 92–176; BP diastolic 57–107; PULSE 65–104; RESP 11–20
[2016-09-04] MEDS ORDERED: ALBUMIN HUMAN 25% 100 ML IV ONE
--- NOTE | 2016-09-04 00:25 | RADRPT ---
PROCEDURE: XR Chest. CLINICAL INDICATION: Chest pain. Concern for pulmonary edema TECHNIQUE: Portable AP upright view of the chest was obtained. COMPARISON: None. FINDINGS: The cardiomediastinal silhouette is within normal limits. The lungs are clear. There is no evidenc e for pleural effusion, pneumothorax or pulmonary edema. The osseous structures are intact with no evidence for acute abnormality. RPTAT:HJJR IMPRESSION: No evidence for acute intrathoracic pathology, in particular no evidence of pulmonary edema. Physician Rach Date Time Electronically viewed and signed by Physician Rach on 09/04/2016 00:25 /
--- NOTE | 2016-09-04 01:21 | RADRPT ---
PROCEDURE: Abdominal ultrasound. CLINICAL INDICATION: Abdominal pain. TECHNIQUE: Multiple real-time images were acquired of the patient's abdomen and retroperitoneum u tilizing a high resolution transducer. COMPARISON: None FINDINGS: The liver demonstrates normal echogenicity and size measuring 14.4 cm. No focal hepatic lesion is id entified. The gallbladder is distended. Multiple echogenic gallstones are identified within the gal lbladder. There is a negative sonographic Palmer's sign. There is no pericholecystic fluid or gallb ladder wall thickening. The common bile duct measures 2.6 mm in maximal dimension. The visualized po rtions of the pancreas are unremarkable. There is no splenomegaly. There is mild free fluid within t he right upper quadrant. There is a small right-sided pleural effusion. The kidneys are normal size, and demonstrate normal echogenicity and morphology. The right kidney me asures 12.2 x 4.4 x 4.6 cm. The left kidney measures 11.3 x 6.0 x 5.0 cm. There is no dilatation of the pelvicaliceal systems bilaterally. There are no perinephric fluid collections. There are echoge crystal foci within the left kidney. The bladder contains a Lowe catheter. The visualized abdominal ao rta and vena cava are unremarkable. IMPRESSION: Cholelithiasis without ultrasound evidence of cholecystitis. Nonobstructing left renal calculi. Mild free fluid within the right upper quadrant. Small right-sided pleural effusion. .Catalino Jovel MD, MD Date Time Electronically viewed and signed by .Catalino Jovel MD, MD on 09/04/2016 01:21 .T/
[2016-09-04 01:44] LABS: CALCIUM 7.5 mg/dl (8.4-10.2); CREATININE 2.07 mg/dl (0.44-1.00); POTASSIUM 5.6 mmol/L (3.5-5.1)
[2016-09-04 01:56] LABS: ADD UMIC YES; UR ASCORBIC ACID NEGATIVE (NEGATIVE); UR BILIRUBIN (Dip) NEGATIVE (NEGATIVE); UR BLOOD (Dip) 3+ mg/dL (NEGATIVE); UR CLARITY CLOUDY (CLEAR); UR COLOR YELLOW (YELLOW); UR GLUCOSE (Dip) NEGATIVE (NEGATIVE); UR KETONES (Dip) NEGATIVE (NEGATIVE); UR LEUKOCYTE ESTERASE (Dip) TRACE Leu/ul (NEGATIVE); UR MUCUS FEW /HPF (NONE SEEN); UR NITRITE (Dip) NEGATIVE (NEGATIVE); UR RBC 135 /HPF (0-5); UR SPECIFIC GRAVITY (Dip) 1.013 (1.003-1.030); UR SQUAMOUS EPITHELIAL CELL FEW /HPF (FEW); UR TOTAL PROTEIN (Dip) 2+ mg/dl (NEGATIVE); UR UROBILINOGEN (Dip) NEGATIVE (NEGATIVE)
[2016-09-04] MEDS: hydrALAzine 20 MG INJ IV PRN ×2 (05:12→12:38)
[2016-09-04] MEDS ORDERED: FUROSEMIDE 40 MG INJ IV ONE ×2 (08:30)
--- NOTE | 2016-09-04 08:36 | CONS ---
Date/Time of Note Date/Time of Note DATE: 09/04/16 TIME: 08:25 Assessment/Plan Assessment/Plan Chief Complaint/Hosp Course #1 shruti- nonoliguric and responded to lasix. possibly related to eclampsia. ro atn, obstructive disorder. DDX includes other microangiopathic processes ie TTP /HUS which can complicate and has obviously different treatments. Would recommend heme consult. check peripheral smear. in meantime, would send urine studies, boone. continue to treat bp. continue to diurese and kaliurese with lasix. monitor serial labs avoid nephrotoxins. would dc ppi as associated with ain and probably of minimal benefit. all other meds dosed ok. #2 Suspected hellp syndrome: Patient has thrombocytopenia as well as elevated liver function tests however no signs of hemolytic anemia. Bilirubin is within normal values. Will continue to monitor the patient. Will check haptoglobin. Also order right upper quadrant liver ultrasound secondary to elevated liver function test. #3 severe -induced hypertension/preeclampsia: Patient was seen to have blood pressures in the systolic of 260. Patient had blood pressure medications given during surgery. She delivered without any complications. At the current time patient's blood pressure is ranging from the 130-150s systolically. With a diastolic of approximately 95-105. We will continue to monitor her blood pressure and provide as needed hydralazine 5 mg to maintain blood pressure within the range of 130-150 systolic and 90-95 diastolic. Her urine labs did show protein however patient did not have any seizures. She did receive magnesium. #4 hyperkalemia- as complication of renal failure -k resrrict -lasix extra dose. -check ekg. Problems: Consultation Date/Type/Reason Admit Date/Time Sep 02, 2016 at 22:18 Hx of Present Illness Reason for Consultation PIH, help syndrome, hypertensive crisis, shruti Chief complaint: Severely elevated blood pressure This is a 36-year-old now, female who is status post . Patient was noted to have severely elevated blood pressures in the 260s systolic range and low platelets. Presented with contractions. Patient was taken immediately to the OR and had a repeat low segment transverse . During her operative report she was given blood pressure medications of hydralazine and labetalol. She was also noted to have low platelets. Patient was subsequently brought to the ICU after her delivery for closer management of her blood pressures. She is on oxytocin and LR status post her . The current time her blood pressure is in the 150 systolic range and 95-100 diastolic range. She denies any headaches or chest pain or shortness of breath. She does state though that she has some numbness of her lower extremities however this is thought to possibly be secondary to the medication she receives in a C- section as per the OB doctor. Noted to have worsening renal function and given lasix with some good response. She has never had history of eclampsia in past or previous pregnancies. She did have gestational hypertension. She denies complaints. Const: As per HPI Eyes : No pain discharge or redness or change in visual acuity ENT: No pain, sore throat, congestion, congestion, dysphagia or discharge Respiratory: No shortness of breath, cough, sputum, wheezing, or pleuritic pain Cardiovascular: No chest pain, palpitation, PND, or edema GI : Mild pain from surgical scar from Genitourinary: No dysuria, hematuria, flank pain , discharge or CVA tenderness Musculoskeletal: As per HPI Skin: No rash, bruising or hives Neuro: As per HPI Endocrine: No polyuria, polydipsia, temperature intolerance Psych: No hallucination, depression, anxiety or suicidal ideation Initial Consultation Hx Past Medical History History of gestational hypertension and previous Past Surgical History 4 Family History Significant Family History: hypertension (Mom) Social History Alcohol Use: none Smoking Status: Never smoker Drug Use: none Exam/Review of Systems General: Patient is well-developed female in no acute distress status post C- section HEENT: Atraumatic, normocephalic. The pupils are equal, round and reactive. Extraocular motor are intact Neck: Supple with full range of motion. No rigidity or meningismus Chest: Nontender Lungs: Clear to auscultation bilaterally no crackles rales or wheezing Heart: Normal S1-S2, Regular rhythm and rate. No murmur, S3, or S4 Abdomen: Soft , nontender, nondistended , bowel sounds are present. No guarding no rebound tenderness , No masses or organomegaly. No costovertebral temporal angle mass Extremities: Trace edema of the bilateral lower extremities. Neurologic: Normal mental status, speech normal, cranial nerves II through XII are intact, motor and sensory are intact, she does report mild numbness of her bilateral lower extremities from the level of the jorge down Social History Alcohol Use: none Smoking Status: Never smoker Drug Use: none Exam/Review of Systems Vital Signs Vitals Vital Signs Date Time Temp Pulse Resp B/P Pulse Ox O2 Delivery O2 Flow Rate FiO2 09/04/16 06:00 87 16 125/73 99 Room Air 09/04/16 04:00 98.1 09/03/16 11:00 1.0 Intake and Output 09/03/16 09/03/16 09/04/16 14:59 22:59 06:59 Intake Total 1717.0 ml 775 ml 700 ml Output Total 145 ml 90 ml 925 ml Balance 1572.0 ml 685 ml -225 ml Results Result Diagram: 09/03/16 1745 09/04/16 0031 Results 24 hrs Laboratory Tests Test 09/03/16 10:54 09/03/16 12:27 09/03/16 17:45 09/03/16 21:00 White Blood Count 11.1 H 16.3 #H Red Blood Count 2.55 #L 2.64 L Hemoglobin 7.7 #L 7.9 L Hematocrit 25.2 L 26.4 L Mean Corpuscular Volume 98.8 100.0 Mean Corpuscular Hemoglobin 30.2 29.9 Mean Corpuscular Hemoglobin Concent 30.6 L 29.9 L Red Cell Distribution Width 19.7 H 19.8 H Platelet Count 110 #L 136 #L Mean Platelet Volume 13.5 H 13.5 H Neutrophils % 84.6 H 84.8 H Lymphocytes % 12.0 L 10.8 L Monocytes % 1.9 2.5 Eosinophils % 0.0 0.0 Basophils % 0.1 0.1 Nucleated Red Blood Cells % 0.6 H 0.7 H Neutrophils # 9.4 H 13.8 H Lymphocytes # 1.3 1.8 Monocytes # 0.2 L 0.4 Eosinophils # 0.0 0.0 Basophils # 0.0 0.0 Nucleated Red Blood Cells # 0.1 H 0.1 H Sodium Level 134 L Potassium Level 5.8 H Chloride Level 103 Carbon Dioxide Level 20 L Anion Gap 17 H Blood Urea Nitrogen 27 H Creatinine 1.76 H Glucose Level 140 Calcium Level 7.7 L Total Bilirubin 0.2 Direct Bilirubin 0.00 Indirect Bilirubin 0.2 Aspartate Amino Transf (AST/SGOT) 92 H Alanine Aminotransferase (ALT/SGPT) 83 H Alkaline Phosphatase 177 H Total Protein 5.1 L Albumin 2.4 L Globulin 2.70 Albumin/Globulin Ratio 0.88 Magnesium Level 8.2 #*H 7.7 *H Urine Color YELLOW Urine Clarity CLOUDY A Urine pH 5.0 Urine Specific [place] 1.013 Urine Ketones NEGATIVE Urine Nitrite NEGATIVE Urine Bilirubin NEGATIVE Urine Urobilinogen NEGATIVE Urine Leukocyte Esterase TRACE A Urine Microscopic RBC 135 H Urine Microscopic WBC 1 Urine Squamous Epithelial Cells FEW Urine Mucus FEW A Urine Hemoglobin 3+ H Urine Random Sodium 67 Urine Glucose NEGATIVE Urine Total Protein 2+ H Test 09/04/16 00:31 09/04/16 04:40 Sodium Level 132 L Potassium Level 5.6 H Chloride Level 102 Carbon Dioxide Level 19 L Anion Gap 17 H Blood Urea Nitrogen 31 H Creatinine 2.07 H Glucose Level 119 Calcium Level 7.5 L Magnesium Level 6.7 *H 6.5 *H Medications Medications Current Medications Oxytocin/Lactated Ringer's 500 ml @ 0 mls/hr ONCE PRN IV For Hemorrhage Management; Start 09/02/16 at 22:00 Methylergonovine Maleate (Methergine) 0.2 mg ONCE PRN IM VAGINAL BLEEDING; Start 09/02/16 at 22:00 Carboprost Tromethamine (Hemabate) 250 mcg ONCE PRN IM VAGINAL BLEEDING; Start 09/02/16 at 22:00 Misoprostol (Cytotec) 1,000 mcg ONCE PRN [place] VAGINAL BLEEDING; Start 09/02/16 at 22:00 Labetalol HCl (Labetalol) 20 mg OC PRN IV IV PROTOCOL Last administered on 09/03 00:40; Admin Dose 20 MG; Start 09/02/16 at 22:00 Labetalol HCl (Labetalol) 20 mg Q10MIN PRN IV ELEVATED BLOOD PRESSURE Last administered on 09/03/16 18:58; Admin Dose 20 MG; Start 09/02/16 at 22:30 Hydralazine HCl 5 mg 5 mg Q6H PRN IV ELEVATED BLOOD PRESSURE Last administered on 09/04/16 05:12; Admin Dose 5 MG; Start 09/03/16 at 20:30 Sodium Chloride (NS) 1,000 ml @ 75 mls/hr [id number] IV Last administered on 09/03 21:00; Admin Dose 75 MLS/HR; Start 09/03/16 at 21:00 Furosemide (Lasix) 40 mg ONCE ONCE IV ; Start 09/04/16 at 08:30; Stop 09/04/16 at 08:31; Status UNV FAN ALARCON MD Sep 04, 2016 08:35
--- NOTE | 2016-09-04 08:37 | HP ---
DATE OF ADMISSION: 09/02/2016 HISTORY OF PRESENT ILLNESS: The patient is a 36-year-old G6, P4 who presents at 33-1/2 weeks, complaining of epigastric pain and mild headaches. The patient has had no care during this , has had good movement. PHYSICAL EXAMINATION: CARDIAC: Regular rate and rhythm. LUNGS: Clear to auscultation bilaterally. ABDOMEN: Soft, nontender, no rebound, no guarding. Fundal height is 35 cm. EXTREMITIES: +2 pitting edema. VITAL SIGNS: Blood pressure is initially 260/160, otherwise within normal limits. DATA: Hemoglobin 10.7, platelets 84. Chemistry panel: LFTs, creatinine is 1.4. ASSESSMENT: Intrauterine at 33-1/2 weeks based on 19 week ultrasound. Patient with HELLP syndrome with epigastric pain, headaches, abnormal lab values. The patient was given several doses of and hydralazine to control the blood pressure. Once the blood pressure was controlled. The patient has a history of x3. The patient is for repeat section. The risks and benefits discussed with regard to infection, bleeding, blood transfusion. All discussed with the patient. The patient understood the risks and consents to admission. Dictated By: Cristofer Richardson MD /juana/destiny /Document#: [id number]
[2016-09-04] MEDS: LABETALOL HCL 20MG INJ IV PRN (08:43)
[2016-09-04] MEDS: SOD CHLORIDE 0.9% 1,000 ML IV SCH (10:20)
[2016-09-04 11:47] LABS: CALCIUM 7.5 mg/dl (8.4-10.2); CREATININE 1.98 mg/dl (0.44-1.00); POTASSIUM 5.6 mmol/L (3.5-5.1)
--- NOTE | 2016-09-04 13:21 | QN ---
Documentation Comment pt doing well vss 140/80 no charles no RUQ pain wound CDI lft improving, plt improving, cr up to 2.0 a/ppod 1 Severe PIH/HELLP syndrome improving Cr up-nepho consult ambulate with assistance consider po HTN CELI Soliz MD Sep 04, 2016 13:21
[2016-09-04] MEDS: LABETALOL 200 MG TAB PO SCH ×2 (13:59→22:25)
[2016-09-04] MEDS: NIFEdipine (XL) 30 MG TAB PO SCH (14:00)
--- NOTE | 2016-09-04 14:45 | PN ---
Date/Time of Note Date/Time of Note DATE: 09/04/16 TIME: 14:45 Assessment/Plan VTE Prophylaxis VTE Prophylaxis Intervention: SCD's Lines/Catheters IV Catheter Type (from Nrs): Peripheral IV Urinary Cath still in place: Yes Reason Cath still needed: other (indicate) (Plan to DC when okay with obstetrics) Assessment/Plan Assessment/Plan 36-year-old female 5 now para 5 who is status post emergent section because of severe preeclampsia for whom we are consulted for medical management of hypertension. 1. Severe preeclampsia status post emergent , patient is also status post IV magnesium therapy for 24 hours postdelivery. Blood pressure is well controlled at this time, we will start oral antihypertensives. Patient has chosen to breast-feed, will choose agents compatible with breast-feeding. 2. Possible help syndrome: Against it patient is status post treatment which is emergent section, platelet count is improving nicely, and liver ultrasound just shows cholelithiasis without cholecystitis as well as nonobstructing renal calculi no further intervention required 3. Probable underlying chronic hypertension, patient will need to be discharged on oral antihypertensives. Disposition: Transfer to floor. Prophylaxis: SCDs/H2 blockers Subjective 24 Hr Interval Summary Free Text/Dictation Patient seen and evaluated Mild abdominal discomfort Nursing reports no acute overnight events. Exam/Review of Systems Vital Signs Vitals Vital Signs Date Time Temp Pulse Resp B/P Pulse Ox O2 Delivery O2 Flow Rate FiO2 09/04/16 14:00 92 16 148/91 100 Room Air 09/04/16 12:00 97.6 09/03/16 11:00 1.0 Intake and Output 09/03/16 09/03/16 09/04/16 15:00 23:00 07:00 Intake Total 1692.0 ml 775 ml 700 ml Output Total 175 ml 60 ml 1275 ml Balance 1517.0 ml 715 ml -575 ml Exam Constitutional: alert, oriented Head: atraumatic, normocephalic Neck: non-tender, supple Respiratory: clear to auscultation Cardiovascular: regular rate and rhythm Gastrointestinal: S/ NT / ND / +BS /wide band wound dressing covering section scar, not stained Extremities: no edema, good radial pulses Results Result Diagram: 09/03/16 5471 09/04/16 1046 Results 24 hrs Laboratory Tests Test 09/03/16 17:45 09/03/16 21:00 09/04/16 00:31 09/04/16 04:40 White Blood Count 16.3 #H Red Blood Count 2.64 L Hemoglobin 7.9 L Hematocrit 26.4 L Mean Corpuscular Volume 100.0 Mean Corpuscular Hemoglobin 29.9 Mean Corpuscular Hemoglobin Concent 29.9 L Red Cell Distribution Width 19.8 H Platelet Count 136 #L Mean Platelet Volume 13.5 H Neutrophils % 84.8 H Lymphocytes % 10.8 L Monocytes % 2.5 Eosinophils % 0.0 Basophils % 0.1 Nucleated Red Blood Cells % 0.7 H Neutrophils # 13.8 H Lymphocytes # 1.8 Monocytes # 0.4 Eosinophils # 0.0 Basophils # 0.0 Nucleated Red Blood Cells # 0.1 H Magnesium Level 7.7 *H 6.7 *H 6.5 *H Urine Color YELLOW Urine Clarity CLOUDY A Urine pH 5.0 Urine Specific [place]le 1.013 Urine Ketones NEGATIVE Urine Nitrite NEGATIVE Urine Bilirubin NEGATIVE Urine Urobilinogen NEGATIVE Urine Leukocyte Esterase TRACE A Urine Microscopic RBC 135 H Urine Microscopic WBC 1 Urine Squamous Epithelial Cells FEW Urine Mucus FEW A Urine Hemoglobin 3+ H Urine Random Sodium 67 Urine Glucose NEGATIVE Urine Total Protein 2+ H Sodium Level 132 L Potassium Level 5.6 H Chloride Level 102 Carbon Dioxide Level 19 L Anion Gap 17 H Blood Urea Nitrogen 31 H Creatinine 2.07 H Glucose Level 119 Calcium Level 7.5 L Test 09/04/16 10:46 Sodium Level 133 L Potassium Level 5.6 H Chloride Level 103 Carbon Dioxide Level 19 L Anion Gap 17 H Blood Urea Nitrogen 34 H Creatinine 1.98 H Glucose Level 106 Calcium Level 7.5 L Magnesium Level 6.0 *H Lactate Dehydrogenase 1175 H Medications Medications Current Medications Oxytocin/Lactated Ringer's 500 ml @ 0 mls/hr ONCE PRN IV For Hemorrhage Management; Start 09/02/16 at 22:00 Methylergonovine Maleate (Methergine) 0.2 mg ONCE PRN IM VAGINAL BLEEDING; Start 09/02/16 at 22:00 Carboprost Tromethamine (Hemabate) 250 mcg ONCE PRN IM VAGINAL BLEEDING; Start 09/02/16 at 22:00 Misoprostol (Cytotec) 1,000 mcg ONCE PRN [place] VAGINAL BLEEDING; Start 09/02/16 at 22:00 Hydralazine HCl (Apresoline) 5 mg Q6H PRN IV ELEVATED BLOOD PRESSURE Last administered on 09/04/16 12:38; Admin Dose 5 MG; Start 09/03/16 at 20:30 Nifedipine (Procardia Xl) 30 mg BID PO Last administered on 09/04/16 14:00; Admin Dose 30 MG; Start 09/04/16 at 14:00 Labetalol HCl (Normodyne) 200 mg Q8 PO Last administered on 09/04/16 13:59; Admin Dose 200 MG; Start 09/04/16 at 14:00 ELIAS SABA Sep 04, 2016 14:45
--- NOTE | 2016-09-04 14:45 | EN ---
Date/Time of Note Date/Time of Note DATE: 09/04/16 TIME: 14:45 ELIAS SABA Sep 04, 2016 14:45
[2016-09-04 15:43] LABS: ADD UMIC YES; UR ASCORBIC ACID NEGATIVE (NEGATIVE); UR BILIRUBIN (Dip) NEGATIVE (NEGATIVE); UR BLOOD (Dip) 2+ mg/dL (NEGATIVE); UR CLARITY CLEAR (CLEAR); UR COLOR STRAW (YELLOW); UR GLUCOSE (Dip) NEGATIVE (NEGATIVE); UR KETONES (Dip) NEGATIVE (NEGATIVE); UR LEUKOCYTE ESTERASE (Dip) NEGATIVE Leu/ul (NEGATIVE); UR NITRITE (Dip) NEGATIVE (NEGATIVE); UR RBC 8 /HPF (0-5); UR SPECIFIC GRAVITY (Dip) 1.005 (1.003-1.030); UR TOTAL PROTEIN (Dip) 1+ mg/dl (NEGATIVE); UR UROBILINOGEN (Dip) NEGATIVE (NEGATIVE)
[2016-09-04] MEDS ORDERED: HYDROCODONE/APAP (5/325) TAB PO PRN (18:30)
[2016-09-05] VITALS (8 sets, daily range): BP systolic 131–163; BP diastolic 79–98; PULSE 75–93; RESP 19–20
[2016-09-05] MEDS: NIFEdipine (XL) 30 MG TAB PO SCH ×3 (02:25→22:09)
[2016-09-05] MEDS: HYDROCODONE/APAP (5/325) TAB PO PRN ×3 (05:46→21:05)
[2016-09-05] MEDS: LABETALOL 200 MG TAB PO SCH ×3 (05:46→22:47)
[2016-09-05 08:35] LABS: ALBUMIN 2.7 g/dl (3.3-4.9); ALBUMIN/GLOBULIN RATIO 1.08; BILIRUBIN,INDIRECT 0.1 mg/dl (0-1.1); BILIRUBIN,TOTAL 0.1 mg/dl (0.2-1.3); CALCIUM 7.4 mg/dl (8.4-10.2); CREATININE 1.71 mg/dl (0.44-1.00); POTASSIUM 4.6 mmol/L (3.5-5.1); TOTAL PROTEIN 5.2 g/dl (6.1-8.1)
--- NOTE | 2016-09-05 10:25 | PN ---
Date/Time of Note Date/Time of Note DATE: 09/05/16 TIME: 10:18 Assessment/Plan Lines/Catheters IV C[facility]ter Type (from [facility] Saline Lock Urinary Cath still in place: Yes Assessment/Plan Chief Complaint/Hosp Course 1. Nonoliguric acute kidney injury with previously normal baseline creatinine -Etiology secondary to ATN. Urinalysis showed evidence of coarse granular casts consistent with tubular injury. No evidence of dysmorphic RBCs -Patient's renal function has been improving with supportive care, thrombocytopenia is improving, no evidence of any neurological symptoms rashes. the possibility of a microangiopathic process i.e. TTP/HUS is a consideration. -Would continue current treatment plan supportive care renally dose all meds -Would recommend a hematology consult for evaluation although suspicion is low for complement mediated/atypical hus 2. Hyperkalemia -Secondary acute kidney injury improving 3. Anemia -Monitor H&H level 4. Proteinuria -Likely from ATN -Repeat a protein creatinine ratio Suspected hellp syndrome: -Clinically improving after delivery severe -induced hypertension/preeclampsia: -Clinically improving after delivery Problems: Subjective 24 Hr Interval Summary Free Text/Dictation Patient seen and examined Clinically doing well. No rashes no nausea no vomiting no frothy No shortness of breath no confusion altered mental state Exam/Review of Systems Vital Signs Vitals Vital Signs Date Time Temp Pulse Resp B/P Pulse Ox O2 Delivery O2 Flow Rate FiO2 09/05/16 08:00 98.2 75 19 140/83 Room Air 09/04/16 17:30 100 09/03/16 11:00 1.0 Intake and Output 09/04/16 09/04/16 09/05/16 14:59 22:59 06:59 Intake Total 1200 ml 240 ml 960 ml Output Total 2025 ml 655 ml 1300 ml Balance -825 ml -415 ml -340 ml Exam HEENT: Atraumatic, normocephalic. The pupils are equal, round and reactive. Extraocular motor are intact Neck: Supple with full range of motion. No rigidity or meningismus Chest: Nontender Lungs: Clear to auscultation bilaterally no crackles rales or wheezing Heart: Normal S1-S2, Regular rhythm and rate. No murmur, S3, or S4 Abdomen: Soft , nontender, nondistended , bowel sounds are present. No guarding no rebound tenderness , No masses or organomegaly. No costovertebral temporal angle mass Extremities: Trace edema of the bilateral lower extremities. Neurologic: Normal mental status, speech normal, cranial nerves II through XII are intact, motor and sensory are intact, Results Result Diagram: 09/03/16 1745 09/05/16 0704 Results 24 hrs Laboratory Tests Test 09/04/16 10:46 09/04/16 19:49 09/05/16 07:04 Sodium Level 133 L 134 L Potassium Level 5.6 H 4.6 Chloride Level 103 101 Carbon Dioxide Level 19 L 20 L Anion Gap 17 H 18 H Blood Urea Nitrogen 34 H 37 H Creatinine 1.98 H 1.71 H Glucose Level 106 96 Calcium Level 7.5 L 7.4 L Magnesium Level 6.0 *H 5.0 H Lactate Dehydrogenase 1175 H Total Bilirubin 0.1 L Direct Bilirubin 0.00 Indirect Bilirubin 0.1 Aspartate Amino Transf (AST/SGOT) 52 H Alanine Aminotransferase (ALT/SGPT) 64 Alkaline Phosphatase 126 H Total Protein 5.2 L Albumin 2.7 L Globulin 2.50 Albumin/Globulin Ratio 1.08 Medications Medications Current Medications Oxytocin/Lactated Ringer's 500 ml @ 0 mls/hr ONCE PRN IV For Hemorrhage Management; Start 09/02/16 at 22:00 Methylergonovine Maleate (Methergine) 0.2 mg ONCE PRN IM VAGINAL BLEEDING; Start 09/02/16 at 22:00 Carboprost Tromethamine (Hemabate) 250 mcg ONCE PRN IM VAGINAL BLEEDING; Start 09/02/16 at 22:00 Misoprostol (Cytotec) 1,000 mcg ONCE PRN [place] VAGINAL BLEEDING; Start 09/02/16 at 22:00 Hydralazine HCl (Apresoline) 5 mg Q6H PRN IV ELEVATED BLOOD PRESSURE Last administered on 09/04/16 12:38; Admin Dose 5 MG; Start 09/03/16 at 20:30 Nifedipine (Procardia Xl) 30 mg BID PO Last administered on 09/05/16 08:50; Admin Dose 30 MG; Start 09/04/16 at 14:00 Labetalol HCl (Normodyne) 200 mg Q8 PO Last administered on 09/05/16 05:46; Admin Dose 200 MG; Start 09/04/16 at 14:00 Acetaminophen/ Hydrocodone Bitart ([place] (5/325)) 1 tab Q4H PRN PO PAIN LEVEL 1 -5; Start 09/04/16 at 18:30 Acetaminophen/ Hydrocodone Bitart ([place] ()) 2 tab Q4H PRN PO PAIN LEVEL 6 -10 Last administered on 09/05/16t 05:46; Admin Dose 2 TAB; Start 09/04/16 at 18 :30 BROOKLYN RUTHERFORD DO Sep 05, 2016 10:24
--- NOTE | 2016-09-05 11:08 | CONS ---
Date/Time of Note Date/Time of Note DATE: 09/05/16 TIME: 11:02 Assessment/Plan Assessment/Plan Chief Complaint/Hosp Course 36-year-old female 5 now para 5 who is status post emergent section because of severe preeclampsia for whom we are consulted for medical management of hypertension. 1. Severe preeclampsia status post emergent . Now stable. -Status post IV magnesium therapy for 24 hours postdelivery. -Continue oral antihypertensives. 2. Thrombocytopenia/suspected HELLP syndrome. Thrombocytopenia improved significantly. -Recommend hematology consultation to rule out TTP/other hematological disorders. 3. Essential hypertension. Continue antihypertensives. 4. Proteinuria/acute kidney injury. Resolving. -Follow-up with nephrology recommendation. Prophylaxis: SCDs/H2 blockers We will continue to monitor blood pressure and adjust as indicated. Case discussed with . Problems: Consultation Date/Type/Reason Admit Date/Time Sep 02, 2016 at 22:18 Initial Consult Date 09/03/16 Type of Consultation: Medical management 24 HR Interval Summary Free Text/Dictation Patient sitting up in bed, denies any discomfort. Exam/Review of Systems Vital Signs Vitals Vital Signs Date Time Temp Pulse Resp B/P Pulse Ox O2 Delivery O2 Flow Rate FiO2 09/05/16 08:00 98.2 75 19 140/83 Room Air 09/04/16 17:30 100 09/03/16 11:00 1.0 Intake and Output 09/04/16 09/04/16 09/05/16 15:00 23:00 07:00 Intake Total 1125 ml 240 ml 960 ml Output Total 1675 ml 655 ml 1300 ml Balance -550 ml -415 ml -340 ml Exam General: Well developed,adequately built, not in any acute distress . HEENT: Normocephalic, Atraumatic, No laceration or hematoma; Eyes: PEERL, Conjunctiva clear, Anicteric sclera Neck: Supple without any lymphadenopathy, nontender, no JVD, no carotid bruits, trachea midline, no thyromegaly Cardiac: S1, S2 auscultated, regular rhythm and rate, no mumurs or gallop Pulmonary: Normal respiratory effort. Chest clear to auscultation bilaterally, no adventitious breath sounds GI: Abdomen normal to inspection. scar intact. Soft, non tender, non - distended, no masses, no rebound tenderness or guarding. Bowel sounds active on all four quadrants Genitourinary: With Lowe draining clear yellow urine. Extremities: No cyanosis, clubbing, or edema. Pulses [2+] bilaterally. Full ROM on all four extremities. No focal weakness appreciated. Neurologic: Alert to person, place, time, and situation. Affect appropriate, intact sensation. Skin: Clean,dry, and intact. No ecchymosis, no rashes, or lesions Results Result Diagram: 09/03/16 1745 09/05/16 0704 Results 24 hrs Laboratory Tests Test 09/04/16 19:49 09/05/16 07:04 Magnesium Level 5.0 H Sodium Level 134 L Potassium Level 4.6 Chloride Level 101 Carbon Dioxide Level 20 L Anion Gap 18 H Blood Urea Nitrogen 37 H Creatinine 1.71 H Glucose Level 96 Calcium Level 7.4 L Total Bilirubin 0.1 L Direct Bilirubin 0.00 Indirect Bilirubin 0.1 Aspartate Amino Transf (AST/SGOT) 52 H Alanine Aminotransferase (ALT/SGPT) 64 Alkaline Phosphatase 126 H Total Protein 5.2 L Albumin 2.7 L Globulin 2.50 Albumin/Globulin Ratio 1.08 Medications Medications Current Medications Oxytocin/Lactated Ringer's 500 ml @ 0 mls/hr ONCE PRN IV For Hemorrhage Management; Start 09/02/16 at 22:00 Methylergonovine Maleate (Methergine) 0.2 mg ONCE PRN IM VAGINAL BLEEDING; Start 09/02/16 at 22:00 Carboprost Tromethamine (Hemabate) 250 mcg ONCE PRN IM VAGINAL BLEEDING; Start 09/02/16 at 22:00 Misoprostol (Cytotec) 1,000 mcg ONCE PRN [place] VAGINAL BLEEDING; Start 09/02/16 at 22:00 Hydralazine HCl (Apresoline) 5 mg Q6H PRN IV ELEVATED BLOOD PRESSURE Last administered on 09/04/16 12:38; Admin Dose 5 MG; Start 09/03/16 at 20:30 Nifedipine (Procardia Xl) 30 mg BID PO Last administered on 09/05/16 08:50; Admin Dose 30 MG; Start 09/04/16 at 14:00 Labetalol HCl (Normodyne) 200 mg Q8 PO Last administered on 09/05/16 05:46; Admin Dose 200 MG; Start 09/04/16 at 14:00 Acetaminophen/ Hydrocodone Bitart ([place] (5/325)) 1 tab Q4H PRN PO PAIN LEVEL 1 -5; Start 09/04/16 at 18:30 Acetaminophen/ Hydrocodone Bitart ([place] (5/325)) 2 tab Q4H PRN PO PAIN LEVEL 6 -10 Last administered on 09/05/16t 05:46; Admin Dose 2 TAB; Start 09/04/16 at 18 :30 TERRANCE KRISHNA NP Sep 05, 2016 11:08
[2016-09-05 11:28] LABS: ADD UMIC YES; UR ASCORBIC ACID NEGATIVE (NEGATIVE); UR BACTERIA FEW /HPF (NONE SEEN); UR BILIRUBIN (Dip) NEGATIVE (NEGATIVE); UR BLOOD (Dip) 1+ mg/dL (NEGATIVE); UR CLARITY CLEAR (CLEAR); UR COLOR STRAW (YELLOW); UR GLUCOSE (Dip) NEGATIVE (NEGATIVE); UR KETONES (Dip) NEGATIVE (NEGATIVE); UR LEUKOCYTE ESTERASE (Dip) NEGATIVE Leu/ul (NEGATIVE); UR NITRITE (Dip) NEGATIVE (NEGATIVE); UR RBC 2 /HPF (0-5); UR SPECIFIC GRAVITY (Dip) 1.008 (1.003-1.030); UR TOTAL PROTEIN (Dip) 2+ mg/dl (NEGATIVE); UR UROBILINOGEN (Dip) NEGATIVE (NEGATIVE)
--- NOTE | 2016-09-05 15:12 | QN ---
Documentation Comment POD2 pt doing well no complaints vss exam wnl CDI a/p pod2 HELLP syndrome improving MAR-improving cr levels and good Uop continue BP meds an supportive care CELI GRANDE MD Sep 05, 2016 15:11
[2016-09-05] MEDS ORDERED: BISACODYL 10 MG SUPP PR ONE (21:30)
[2016-09-06] VITALS (9 sets, daily range): BP systolic 125–153; BP diastolic 74–105; PULSE 68–89; RESP 19–20
[2016-09-06] MEDS: HYDROCODONE/APAP (5/325) TAB PO PRN ×3 (03:48→09:23)
[2016-09-06] MEDS: LABETALOL 200 MG TAB PO SCH ×3 (06:02→21:50)
[2016-09-06 08:30] LABS: ADD SCAN DIFF NO
[2016-09-06 08:37] LABS: BASOPHILS % 0.1 % (0.0-2.0); EOSINOPHILS % 0.1 % (0.0-7.0); HEMATOCRIT 24.5 % (37.0-47.0); HEMOGLOBIN 7.5 g/dl (12.0-16.0); LYMPHOCYTES # 1.6 10^3/ul (0.8-2.9); LYMPHOCYTES % 10.2 % (15.0-51.0); MEAN CORPUSCULAR HEMOGLOBIN 31.1 pg (29.0-33.0); MEAN CORPUSCULAR HGB CONC 30.6 g/dl (32.0-37.0); MEAN CORPUSCULAR VOLUME 101.7 fl (82.0-101.0); MEAN PLATELET VOLUME 11.2 fl (7.4-10.4); MONOCYTE # 0.6 10^3/ul (0.3-0.9); MONOCYTES % 3.6 % (0.0-11.0); NEUTROPHIL # 13.5 10^3/ul (1.6-7.5); NEUTROPHILS % 84.6 % (39.0-77.0); NUCLEATED RED BLOOD CELLS # 0.2 10^3/ul (0.0-0.0); NUCLEATED RED BLOOD CELLS% 1.1 /100WBC (0.0-0.0); PLATELET COUNT 224 10^3/UL (140-415); RED BLOOD COUNT 2.41 10^6/ul (4.20-5.40); RED CELL DISTRIBUTION WIDTH 19.8 % (11.5-14.5); WHITE BLOOD COUNT 15.9 10^3/ul (4.8-10.8)
[2016-09-06 09:08] LABS: CALCIUM 8.2 mg/dl (8.4-10.2); CREATININE 1.46 mg/dl (0.44-1.00); MAGNESIUM 3.5 mg/dl (1.7-2.5); PHOSPHORUS 5.1 mg/dl (2.5-4.9); POTASSIUM 5.3 mmol/L (3.5-5.1)
[2016-09-06] MEDS: NIFEdipine (XL) 30 MG TAB PO SCH ×2 (09:23→20:56)
--- NOTE | 2016-09-06 11:21 | PN ---
Date/Time of Note Date/Time of Note DATE: 09/06/16 TIME: 11:15 Assessment/Plan VTE Prophylaxis VTE Prophylaxis Intervention: ambulation Lines/Catheters IV [facility] Type [facility] Saline Lock Urinary Cath still in place: No Assessment/Plan Chief Complaint/Hosp Course 36-year-old female 5 now para 5 who is status post emergent section because of severe preeclampsia for whom we are consulted for medical management of hypertension. 1. Severe preeclampsia status post emergent . Now stable. -Status post IV magnesium therapy for 24 hours postdelivery. -Continue oral antihypertensives. 2. Thrombocytopenia/suspected HELLP syndrome. Resolved -Recommend hematology consultation to rule out TTP/other hematological disorders. This can be done as outpatient as thrombocytopenia is resolved. 3. Essential hypertension. No stable. Continue antihypertensives. 4. Proteinuria/acute kidney injury. Renal function improving. -Follow-up with nephrology recommendation. 5. Anemia, this is likely postoperative versus other. -Monitor H&H closely. Currently no indication for transfusion as there is no acute bleeding. -Obtain iron panel and treat as indicated. -Again, patient would benefit from seeing a internal medicine specialist to rule out other causes of anemia. 6. Hypokalemia secondary to #4. -Follow-up with nephrology recommendation Prophylaxis: SCDs/H2 blockers We will continue to monitor blood pressure and adjust as indicated. Case discussed with . Problems: Subjective 24 Hr Interval Summary Free Text/Dictation Patient with no acute overnight episodes. Blood pressure has been stable. Exam/Review of Systems Vital Signs Vitals Vital Signs Date Time Temp Pulse Resp B/P Pulse Ox O2 Delivery O2 Flow Rate FiO2 09/06/16 08:00 98.2 68 128/86 Room Air 09/06/16 06:00 19 09/04/16 17:30 100 09/03/16 11:00 1.0 Intake and Output 09/05/16 09/05/16 09/06/16 15:00 23:00 07:00 Intake Total 840 ml 880 ml 1440 ml Output Total 1000 ml 1350 ml 1250 ml Balance -160 ml -470 ml 190 ml Exam General: Well developed,adequately built, not in any acute distress . HEENT: Normocephalic, Atraumatic, No laceration or hematoma; Eyes: PEERL, Conjunctiva clear, Anicteric sclera Neck: Supple without any lymphadenopathy, nontender, no JVD, no carotid bruits, trachea midline, no thyromegaly Cardiac: S1, S2 auscultated, regular rhythm and rate, no mumurs or gallop Pulmonary: Normal respiratory effort. Chest clear to auscultation bilaterally, no adventitious breath sounds GI: Abdomen normal to inspection. scar intact. Soft, non tender, non - distended, no masses, no rebound tenderness or guarding. Bowel sounds active on all four quadrants Genitourinary: With Lowe draining clear yellow urine. Extremities: No cyanosis, clubbing, or edema. Pulses [2+] bilaterally. Full ROM on all four extremities. No focal weakness appreciated. Neurologic: Alert to person, place, time, and situation. Affect appropriate, intact sensation. Skin: Clean,dry, and intact. No ecchymosis, no rashes, or lesions Results Result Diagram: 09/06/16 0815 09/06/16 0815 Results 24 hrs Laboratory Tests Test 09/06/16 08:15 White Blood Count 15.9 H Red Blood Count 2.41 L Hemoglobin 7.5 L Hematocrit 24.5 L Mean Corpuscular Volume 101.7 H Mean Corpuscular Hemoglobin 31.1 Mean Corpuscular Hemoglobin Concent 30.6 L Red Cell Distribution Width 19.8 H Platelet Count 224 # Mean Platelet Volume 11.2 H Neutrophils % 84.6 H Lymphocytes % 10.2 L Monocytes % 3.6 Eosinophils % 0.1 Basophils % 0.1 Nucleated Red Blood Cells % 1.1 H Neutrophils # 13.5 H Lymphocytes # 1.6 Monocytes # 0.6 Eosinophils # 0.0 Basophils # 0.0 Nucleated Red Blood Cells # 0.2 H Sodium Level 135 Potassium Level 5.3 H Chloride Level 102 Carbon Dioxide Level 20 L Anion Gap 18 H Blood Urea Nitrogen 30 H Creatinine 1.46 H Glucose Level 99 Calcium Level 8.2 L Phosphorus Level 5.1 H Magnesium Level 3.5 H Medications Medications Current Medications Oxytocin/Lactated Ringer's 500 ml @ 0 mls/hr ONCE PRN IV For Hemorrhage Management; Start 09/02/16 at 22:00 Methylergonovine Maleate (Methergine) 0.2 mg ONCE PRN IM VAGINAL BLEEDING; Start 09/02/16 at 22:00 Carboprost Tromethamine (Hemabate) 250 mcg ONCE PRN IM VAGINAL BLEEDING; Start 09/02/16 at 22:00 Misoprostol (Cytotec) 1,000 mcg ONCE PRN [place] VAGINAL BLEEDING; Start 09/02/16 at 22:00 Hydralazine HCl (Apresoline) 5 mg Q6H PRN IV ELEVATED BLOOD PRESSURE Last administered on 09/04/16 12:38; Admin Dose 5 MG; Start 09/03/16 at 20:30 Nifedipine (Procardia Xl) 30 mg BID PO Last administered on 09/06/16 09:23; Admin Dose 30 MG; Start 09/04/16 at 14:00 Labetalol HCl (Normodyne) 200 mg Q8 PO Last administered on 09/06/16 06:02; Admin Dose 200 MG; Start 09/04/16 at 14:00 Acetaminophen/ Hydrocodone Bitart ([place] (5/325)) 1 tab Q4H PRN PO PAIN LEVEL 1 -5; Start 09/04/16 at 18:30 Acetaminophen/ Hydrocodone Bitart ([place] (5/325)) 2 tab Q4H PRN PO PAIN LEVEL 6 -10 Last administered on 09/06/16 09:23; Admin Dose 2 TAB; Start 09/04/16 at 18 :30 TERRANCE KRISHNA NP Sep 06, 2016 11:21
--- NOTE | 2016-09-06 11:31 | PN ---
Date/Time of Note Date/Time of Note DATE: 09/06/16 TIME: 11:23 OB Subjective Subjective Subjective September 06, 2016 Post 3 elevated blood pressure Doing fairly Well On Labetalol 200 mg BID Plus Procardia Afebrile Ambulatory Chest Clear Breasts are soft , Nipples are intact Abdomen is soft Fundus is firm Moderate amount of lochia Incision is clean ,No evidence of infection No calf tenderness + Laboratory Tests Test 09/06/16 08:15 White Blood Count 15.910^3/ul Red Blood Count 2.4110^6/ul Hemoglobin 7.5g/dl Hematocrit 24.5% Mean Corpuscular Volume 101.7fl Mean Corpuscular Hemoglobin 31.1pg Mean Corpuscular Hemoglobin Concent 30.6g/dl Red Cell Distribution Width 19.8% Platelet Count 61293^3/UL Mean Platelet Volume 11.2fl Neutrophils % 84.6% Lymphocytes % 10.2% Monocytes % 3.6% Eosinophils % 0.1% Basophils % 0.1% Nucleated Red Blood Cells % 1.1/100WBC Neutrophils # 13.510^3/ul Lymphocytes # 1.610^3/ul Monocytes # 0.610^3/ul Eosinophils # 0.010^3/ul Basophils # 0.010^3/ul Nucleated Red Blood Cells # 0.210^3/ul Sodium Level 135mmol/L Potassium Level 5.3mmol/L Chloride Level 102mmol/L Carbon Dioxide Level 20mmol/L Anion Gap 18 Blood Urea Nitrogen 30mg/dl Creatinine 1.46mg/dl Glucose Level 99mg/dl Calcium Level 8.2mg/dl Phosphorus Level 5.1mg/dl Magnesium Level 3.5mg/dl Current Medications Medications (Trade) Dose Ordered Sig/Ashleigh Route PRN Reason Start Time Stop Time Status Last Admin Dose Admin Labetalol HCl (Labetalol) 20 mg STK-MED ONCE .ROUTE 09/02/16 21:18 09/02/16 21:19 DC Labetalol HCl 20 mg 20 mg NOW ONCE IV 09/02/16 22:04 09/02/16 22:05 DC 09/02/16 21:50 Oxytocin/Lactated Ringer's 500 ml @ 0 mls/hr ONCE PRN IV For Hemorrhage Management 09/02/16 22:00 Methylergonovine Maleate (Methergine) 0.2 mg ONCE PRN IM VAGINAL BLEEDING 09/02/16 22:00 Carboprost Tromethamine (Hemabate) 250 mcg ONCE PRN IM VAGINAL BLEEDING 09/02/16 22:00 Misoprostol 1000 mcg 1,000 mcg ONCE PRN OK VAGINAL BLEEDING 09/02/16 22:00 Lactated Ringer's (Lr) 1,000 ml @ 75 mls/hr [id number] IV 09/02/16 21:43 09/03/16 20:55 DC 09/03/16 20:46 Lidocaine 30 ml 30 ml ONCE PRN INJ EPISIOTOMY/TEARING 09/02/16 22:00 09/03/16 20:55 DC Magnesium Sulfate 100 ml @ ud STK-MED ONCE .ROUTE 09/02/16 21:58 09/02/16 21:59 DC Magnesium Sulfate 100 ml @ 200 mls/hr ONCE ONCE IVPB 09/02/16 22:00 09/02/16 22:29 DC 09/02/16 22:09 Magnesium Sulfate (Magnesium Sulfate 20 Gm/500 ml) 500 ml @ 25 mls/hr Q20H IV 09/02/16 22:30 09/03/16 13:34 DC 09/03/16 10:26 Labetalol HCl (Labetalol) 20 mg OC PRN IV IV PROTOCOL 09/02/16 22:00 09/04/16 13:55 DC 09/03/16 00:40 Betamethasone Acet/Betameth SodPhos (Celestone Soluspan) 12 mg Q12H IM 09/02/16 22:30 09/03/16 10:31 DC 09/03/16 13:06 Labetalol HCl (Labetalol) 20 mg Q12H IV 09/02/16 22:30 09/02/16 22:30 DC Labetalol HCl (Labetalol) 20 mg Q10MIN PRN IV ELEVATED BLOOD PRESSURE 09/02/16 22:30 09/04/16 13:55 DC 09/04/16 08:43 Labetalol HCl (Labetalol) 20 mg ONCE ONCE IV 09/03/16 00:30 09/03/16 00:31 DC Ondansetron HCl (Zofran Inj) 4 mg pre-procedure ONCE IV 09/03/16 01:00 09/03/16 01:01 DC 09/03/16 00:48 Citric Acid/ Sodium Citrate (Bicitra) 30 ml PRE-OP ONCE PO 09/03/16 01:00 09/03/16 01:01 DC 09/03/16 00:47 Phenylephrine HCl (Cr-Synephrine Inj Syg) 500 mcg STK-MED ONCE .ROUTE 09/03/16 00:39 09/03/16 00:40 DC Ondansetron HCl (Zofran Inj) 4 mg STK-MED ONCE .ROUTE 09/03/16 00:39 09/03/16 00:40 DC Metoclopramide HCl (Reglan) 10 mg STK-MED ONCE .ROUTE 09/03/16 00:39 09/03/16 00:40 DC Oxytocin (Oxytocin) 10 units STK-MED ONCE .ROUTE 09/03/16 00:39 09/03/16 00:40 DC Morphine Sulfate (Duramorph) 10 mg STK-MED ONCE .ROUTE 09/03/16 00:39 09/03/16 00:40 DC Ketorolac Tromethamine (Toradol) 30 mg STK-MED ONCE .ROUTE 09/03/16 00:39 09/03/16 00:40 DC Dexamethasone (Decadron) 4 mg STK-MED ONCE .ROUTE 09/03/16 00:39 09/03/16 00:40 DC Hydralazine HCl (Apresoline) 20 mg STK-MED ONCE .ROUTE 09/03/16 01:22 09/03/16 01:23 DC Hydromorphone HCl (Dilaudid) 0.2 mg Q2H PRN IV PAIN LEVEL 1-5 09/03/16 02:00 09/04/16 01:24 DC Hydromorphone HCl (Dilaudid) 0.4 mg Q2H PRN IV PAIN LEVEL 6-10 09/03/16 02:00 09/04/16 01:24 DC Morphine Sulfate (morphine) 2 mg Q2H PRN IV PAIN LEVEL 1-5 09/03/16 02:00 09/04/16 01:24 DC Morphine Sulfate (morphine) 4 mg Q2H PRN IV PAIN LEVEL 6-10 09/03/16 02:00 09/04/16 01:24 DC Ketorolac Tromethamine (Toradol) 30 mg Q6H PRN IV PAIN LEVEL 6-10 09/03/16 02:00 09/04/16 01:24 DC Acetaminophen (Tylenol Tab) 500 mg Q4H PRN PO PAIN LEVEL 1-3 09/03/16 02:00 09/04/16 01:24 DC Acetaminophen/ Hydrocodone Bitart ([place] (5/325)) 1 tab Q4H PRN PO PAIN LEVEL 4-6 09/03/16 02:00 09/04/16 01:24 DC Diphenhydramine HCl (Benadryl) 25 mg Q4H PRN IV PRURITUS 09/03/16 02:00 09/04/16 01:24 DC Nalbuphine HCl (Nubain) 10 mg Q4H PRN IV PRURITUS 09/03/16 02:00 09/04/16 01:24 DC Ondansetron HCl (Zofran Inj) 4 mg Q6H PRN IV NAUSEA AND/OR VOMITING 09/03/16 02:00 09/04/16 01:24 DC Naloxone HCl (Narcan) 0.2 mg Q2M PRN IV FOR RESP RATE 8 OR LESS 09/03/16 02:00 09/04/16 01:24 DC Miscellaneous Information (* Miscellaneous Pharmacy Order) DURAMORPH: 0.2 MG SPI... GIVEN NEURAXIAL XX 09/03/16 02:00 Labetalol HCl (Labetalol) 5 mg PACU ORDER PRN IV HIGH BLOOD PRESSURE 09/03/16 02:00 09/03/16 06:00 DC Hydralazine HCl (Apresoline) 5 mg PACU ORDER PRN IV HIGH BLOOD PRESSURE 09/03/16 02:00 09/03/16 06:00 DC 09/03/16 05:06 Ephedrine Sulfate 5 mg 5 mg PACU ORDER PRN IV MAP LESS THAN 60 09/03/16 02:00 09/03/16 06:00 DC Albumin Human 250 ml @ 750 mls/hr PACU ORDER PRN IV SBP LESS THAN 90 09/03/16 02:00 09/03/16 06:00 DC Meperidine HCl (Demerol) 25 mg PACU ORDER PRN IV POST-OP RIGORS 09/03/16 02:00 09/03/16 06:00 DC Diphenhydramine HCl 25 mg 25 mg PACU ORDER PRN IV PRURITUS 09/03/16 02:00 09/03/16 06:00 DC Magnesium Sulfate 500 ml @ 25 mls/hr Q20H IV 09/03/16 02:30 09/03/16 09:17 DC 09/03/16 03:28 Sodium Chloride (NS) 500 ml @ 500 mls/hr Q1H ONCE IV 09/03/16 12:30 09/03/16 13:29 DC 09/03/16 13:02 Hydralazine HCl 5 mg 5 mg Q6H PRN IV ELEVATED BLOOD PRESSURE 09/03/16 20:30 09/04/16 12:38 Sodium Chloride 1,000 ml @ 75 mls/hr [id number] IV 09/03/16 21:00 09/04/16 13:55 DC 09/03/16 21:00 Sodium Chloride 500 ml @ 500 mls/hr Q1H ONCE IV 09/03/16 21:00 09/03/16 21:59 DC 09/03/16 20:59 Albumin Human (Albumin Human 25%) 100 ml @ 100 mls/hr ONCE ONCE IV 09/04/16 00:00 09/04/16 00:59 DC 09/04/16 01:52 Furosemide (Lasix) 40 mg ONCE ONCE IV 09/04/16 00:00 09/04/16 00:01 DC 09/04/16 00:11 Furosemide (Lasix) 40 mg ONCE ONCE IV 09/04/16 08:30 09/04/16 08:42 DC 09/04/16 09:45 Nifedipine (Procardia Xl) 30 mg BID PO 09/04/16 14:00 09/06/16 09:23 Labetalol HCl (Normodyne) 200 mg Q8 PO 09/04/16 14:00 09/06/16 06:02 Acetaminophen/ Hydrocodone Bitart ([place] (5/325)) 1 tab Q4H PRN PO PAIN LEVEL 1-5 09/04/16 18:30 Acetaminophen/ Hydrocodone Bitart ([place] (5/325)) 2 tab Q4H PRN PO PAIN LEVEL 6-10 09/04/16 18:30 09/06/16 09:23 Bisacodyl (Dulcolax Supp) 10 mg ONCE ONCE OK 09/05/16 21:30 09/05/16 21:31 DC 09/05/16 22:09 1+ ankle edema New born is doing well, Breast feeding Disp: We will keep her 1 more day on labetalol 200 mg twice daily as well as Procardia XL 30 bid. ANJANA RICHARD MD Sep 06, 2016 11:30
[2016-09-06 11:33] LABS: RUBELLA ANTIBODY - IGG 4.42 index
--- NOTE | 2016-09-06 13:50 | RADRPT ---
Vent Rate: 77 bpm RR Interval: 0 msec MS Interval: 160 msec QRS Duration: 98 msec QT Interval: 406 msec QTC Interval: 459 msec P-R-T [place]: 48 - 49 - 53 degrees Normal sinus rhythm Normal ECG Electronically Signed By: Maximo Marte [id number]
[2016-09-06] MEDS ORDERED: NA PHOSPHATE/BIPHOS 133 ML ENEMA PR PRN (14:00)
[2016-09-06 16:33] LABS: MICROALBUMIN 25.8 mg/dL
[2016-09-07 00:15] VITALS: BP 149/94; PULSE 72; RESP 20
[2016-09-07 04:15] VITALS: BP 154/94; PULSE 86; RESP 20
[2016-09-07] MEDS: HYDROCODONE/APAP (5/325) TAB PO PRN ×2 (04:21→14:22)
[2016-09-07] MEDS: LABETALOL 200 MG TAB PO SCH ×2 (05:39→14:18)
[2016-09-07 09:05] LABS: IRON 37 ug/dl (35-150)
[2016-09-07 09:06] LABS: CALCIUM 8.3 mg/dl (8.4-10.2); CREATININE 1.2 mg/dl (0.44-1.00); PHOSPHORUS 5.3 mg/dl (2.5-4.9); POTASSIUM 5.2 mmol/L (3.5-5.1)
[2016-09-07 09:14] LABS: TOTAL IRON BINDING CAPACITY 419 ug/dl (241-421)
[2016-09-07 09:15] VITALS: BP 142/89; PULSE 78; RESP 18
[2016-09-07] MEDS: NIFEdipine (XL) 30 MG TAB PO SCH (09:18)
--- NOTE | 2016-09-07 10:19 | CONS ---
Date/Time of Note Date/Time of Note DATE: 09/07/16 TIME: 10:14 Assessment/Plan Assessment/Plan Chief Complaint/Hosp Course 1. Severe preeclampsia status post emergent . Now stable. -Status post IV magnesium therapy for 24 hours postdelivery. -Continue oral antihypertensives. 2. Thrombocytopenia/suspected HELLP syndrome. Resolved -Recommend hematology consultation to rule out TTP/other hematological disorders. This can be done as outpatient as thrombocytopenia is resolved. 3. Essential hypertension. No stable. Continue antihypertensives. 4. Proteinuria/acute kidney injury. Renal function improving. -Follow-up with nephrology recommendation. 5. Anemia, this is likely postoperative versus Iron deficiency. HH stable. -Oral iron replacement. -Again, patient would benefit from seeing a transfer driver to rule out other causes of anemia. 6. Hyperkalemia secondary to #4. -Follow-up with nephrology recommendation Prophylaxis: SCDs/H2 blockers PLAN: Patient remained stable. Blood pressure has been stable. Patient is medically cleared for discharge once cleared from OB standpoint and nephrology standpoint. Case discussed with . Problems: Consultation Date/Type/Reason Admit Date/Time Sep 02, 2016 at 22:18 Initial Consult Date 09/03/16 Type of Consultation: Medical management Exam/Review of Systems Vital Signs Vitals Vital Signs Date Time Temp Pulse Resp B/P Pulse Ox O2 Delivery O2 Flow Rate FiO2 09/07/16 04:15 98.3 86 20 154/94 Room Air 09/04/16 17:30 100 09/03/16 11:00 1.0 Intake and Output 09/06/16 09/06/16 09/07/16 15:00 23:00 07:00 Intake Total 440 ml 390 ml 240 ml Output Total 950 ml 600 ml 900 ml Balance -510 ml -210 ml -660 ml Exam General: Well developed,adequately built, not in any acute distress . HEENT: Normocephalic, Atraumatic, No laceration or hematoma; Eyes: PEERL, Conjunctiva clear, Anicteric sclera Neck: Supple without any lymphadenopathy, nontender, no JVD, no carotid bruits, trachea midline, no thyromegaly Cardiac: S1, S2 auscultated, regular rhythm and rate, no mumurs or gallop Pulmonary: Normal respiratory effort. Chest clear to auscultation bilaterally, no adventitious breath sounds GI: Abdomen normal to inspection. scar intact. Soft, non tender, non - distended, no masses, no rebound tenderness or guarding. Bowel sounds active on all four quadrants Genitourinary: With Lowe draining clear yellow urine. Extremities: No cyanosis, clubbing, or edema. Pulses [2+] bilaterally. Full ROM on all four extremities. No focal weakness appreciated. Neurologic: Alert to person, place, time, and situation. Affect appropriate, intact sensation. Skin: Clean,dry, and intact. No ecchymosis, no rashes, or lesions Results Result Diagram: 09/06/16 0815 09/07/16 0802 Results 24 hrs Laboratory Tests Test 09/07/16 08:02 Sodium Level 138 Potassium Level 5.2 H Chloride Level 102 Carbon Dioxide Level 24 Anion Gap 17 H Blood Urea Nitrogen 24 H Creatinine 1.20 H Glucose Level 81 Calcium Level 8.3 L Phosphorus Level 5.3 H Magnesium Level 3.0 H Iron Level 37 Total Iron Binding Capacity 419 Percent Iron Saturation 9 L Medications Medications Current Medications Oxytocin/Lactated Ringer's 500 ml @ 0 mls/hr ONCE PRN IV For Hemorrhage Management; Start 09/02/16 at 22:00 Methylergonovine Maleate (Methergine) 0.2 mg ONCE PRN IM VAGINAL BLEEDING; Start 09/02/16 at 22:00 Carboprost Tromethamine (Hemabate) 250 mcg ONCE PRN IM VAGINAL BLEEDING; Start 09/02/16 at 22:00 Misoprostol (Cytotec) 1,000 mcg ONCE PRN LA VAGINAL BLEEDING; Start 09/02/16 at 22:00 Hydralazine HCl (Apresoline) 5 mg Q6H PRN IV ELEVATED BLOOD PRESSURE Last administered on 09/04/16 12:38; Admin Dose 5 MG; Start 09/03/16 at 20:30 Nifedipine (Procardia Xl) 30 mg BID PO Last administered on 09/07/16 09:18; Admin Dose 30 MG; Start 09/04/16 at 14:00 Labetalol HCl (Normodyne) 200 mg Q8 PO Last administered on 09/07/16 05:39; Admin Dose 200 MG; Start 09/04/16 at 14:00 Acetaminophen/ Hydrocodone Bitart ([place] (5/325)) 1 tab Q4H PRN PO PAIN LEVEL 1 -5 Last administered on 09/06/16 23:24; Admin Dose 1 TAB; Start 09/04/16 at 18: 30 Acetaminophen/ Hydrocodone Bitart ([place] (5/325)) 2 tab Q4H PRN PO PAIN LEVEL 6 -10 Last administered on 09/07/16 04:21; Admin Dose 2 TAB; Start 09/04/16 at 18 :30 Simethicone (Mylicon) 160 mg Q6H PRN PO DISTENSION/GAS/BLOATING Last administered on 09/07/16 04:21; Admin Dose 160 MG; Start 09/06/16 at 14:00 Sodium Biphosphate/ Sodium Phosphate (Fleet Enema) 133 ml DAILY PRN LA CONSTIPATION Last administered on 09/06/16 13:48; Admin Dose 133 ML; Start at 14:00 TERRANCE KRISHNA NP Sep 07, 2016 10:19
[2016-09-07] MEDS ORDERED: FERROUS SULFATE (EC) 325 MG TAB PO SCH (10:30)
[2016-09-07] MEDS ORDERED: DOCUSATE SODIUM 100 MG CAP PO SCH (11:00)
--- NOTE | 2016-09-07 12:35 | PN ---
Date/Time of Note Date/Time of Note DATE: 09/07/16 TIME: 12:29 OB Subjective Subjective Subjective Patient denies any headache, blurred vision or epigastric pain. Denies any shortness of breath or chest pain. Denies any dizziness or lightheadedness when ambulating. Vaginal bleeding minimal. Abdominal pain well controlled. Complains of diarrhea 4-5 times a day. Denies any nausea and vomiting. Passed flatus. Breast-feeding. OB Objective Objective Objective General appearance: Alert and oriented 4 Patient does not appear to be in any acute distress Abdomen: Soft, incision clean dry and intact. Evidence of diffuse ecchymosis around the incision as well as lower part of incision extended to the mons pubis noted No evidence of wound hematoma, seroma, infection, wound dehiscence Bowel sounds audible Lungs: Clear to auscultation bilaterally Lower extremity: 2+ bilateral symmetric nonpitting edema, no calf tenderness, no click no cords palpable Hematology - 72 Hrs Test 09/06/16 08:15 White Blood Count 15.910^3/ul (4.8-10.8) H Red Blood Count 2.4110^6/ul (4.20-5.40) L Hemoglobin 7.5g/dl (12.0-16.0) L Hematocrit 24.5% (37.0-47.0) L Mean Corpuscular Volume 101.7fl (82.0-101.0) H Mean Corpuscular Hemoglobin 31.1pg (29.0-33.0) Mean Corpuscular Hemoglobin Concent 30.6g/dl (32.0-37.0) L Red Cell Distribution Width 19.8% (11.5-14.5) H Platelet Count 23539^3/UL (140-415) # Mean Platelet Volume 11.2fl (7.4-10.4) H Neutrophils % 84.6% (39.0-77.0) H Lymphocytes % 10.2% (15.0-51.0) L Monocytes % 3.6% (0.0-11.0) Eosinophils % 0.1% (0.0-7.0) Basophils % 0.1% (0.0-2.0) Nucleated Red Blood Cells % 1.1/100WBC (0.0-0.0) H Neutrophils # 13.510^3/ul (1.6-7.5) H Lymphocytes # 1.610^3/ul (0.8-2.9) Monocytes # 0.610^3/ul (0.3-0.9) Eosinophils # 0.010^3/ul (0.0-0.5) Basophils # 0.010^3/ul (0.0-0.1) Nucleated Red Blood Cells # 0.210^3/ul (0.0-0.0) H Chemistry Test 09/04/16 19:49 09/05/16 07:04 09/06/16 08:15 09/07/16 08:02 Magnesium Level 5.0mg/dl (1.7-2.5) H 3.5mg/dl (1.7-2.5) H 3.0mg/dl (1.7-2.5) H Sodium Level 134mmol/L (135-144) L 135mmol/L (135-144) 138mmol/L (135-144) Potassium Level 4.6mmol/L (3.5-5.1) 5.3mmol/L (3.5-5.1) H 5.2mmol/L (3.5-5.1) H Chloride Level 101mmol/L (97-110) 102mmol/L (97-110) 102mmol/L (97-110) Carbon Dioxide Level 20mmol/L (21-31) L 20mmol/L (21-31) L 24mmol/L (21-31) Anion Gap 18 (8-16) H 18 (8-16) H 17 (8-16) H Blood Urea Nitrogen 37mg/dl (7-20) H 30mg/dl (7-20) H 24mg/dl (7-20) H Creatinine 1.71mg/dl (0.44-1.00) H 1.46mg/dl (0.44-1.00) H 1.20mg/dl (0.44-1.00) H Glucose Level 96mg/dl (70-220) 99mg/dl (70-220) 81mg/dl (70-220) Calcium Level 7.4mg/dl (8.4-10.2) L 8.2mg/dl (8.4-10.2) L 8.3mg/dl (8.4-10.2) L Total Bilirubin 0.1mg/dl (0.2-1.3) L Direct Bilirubin 0.00mg/dl (0.00-0.20) Indirect Bilirubin 0.1mg/dl (0-1.1) Aspartate Amino Transf (AST/SGOT) 52IU/L (15-46) H Alanine Aminotransferase (ALT/SGPT) 64IU/L (13-69) Alkaline Phosphatase 126IU/L (42-121) H Total Protein 5.2g/dl (6.1-8.1) L Albumin 2.7g/dl (3.3-4.9) L Globulin 2.50g/dl (1.3-3.2) Albumin/Globulin Ratio 1.08 Phosphorus Level 5.1mg/dl (2.5-4.9) H 5.3mg/dl (2.5-4.9) H Iron Level 37ug/dl (35-150) Total Iron Binding Capacity 419ug/dl (241-421) Percent Iron Saturation 9% SAT (22-52) L OB Assessment/Plan Other Assessment: Status post section for help syndrome Postoperative day #4 Elevated creatinine due to nephropathy, patient was seen by electronic game developer/ hospitalist. Improving help syndrome, delivered Hypertension, PIH, delivered, received magnesium for 24 hours postdelivery. on labetalol 200 mg p.o. twice daily as well as nifedipine 30 mg twice daily Blood pressure well controlled Anemia, postop, asymptomatic Thrombocytopenia, stable, related to likely help syndrome, delivered. Resolved Seen by hospitalist/electronic game developer, recommended follow-up after discharge from the hospital with blackjack supervisor as well as manager interventional Plan discussed with the patient Diarrhea, patient still on stool softener continues twice a day. No clear evidence of infection, likely related to Colace. Afebrile Advised patient to stop Colace DC home today Follow-up in 2-3 days after discharge with OB Follow-up with blackjack supervisor and manager interventional after discharge from the hospital within 1 week Continue iron BID Transaminitis, related to help , resolving Advised the patient to go to urgent care or ER if she has any, fever, chills, worsening of diarrhea, nausea vomiting, wound discharge, seroma, wound dehiscence, breast tenderness headache, blurred vision, epigastric pain or any other concerns, TIFF CHURCHILL MD Sep 07, 2016 12:35
--- NOTE | 2016-09-07 13:07 | DS ---
Date/Time of Note Date/Time of Note DATE: 09/07/16 TIME: 13:05 Obstetrical Discharge Record Final Diagnosis Final Diagnosis: delivered Other Final Diagnosis Hypertension, thrombocytopenia, transaminitis due to Help syndrome. Required multiple IV antihypertensive medication Status post section No care History of 3 Section Section: Repeat Primary Indication 1. Headache blurred vision epigastric pain and elevated blood pressure, , IUP at 33 and half weeks transaminitis and thrombocytopenia, symptoms are all consistent with help syndrome, required multiple IV antihypertensive medication 2. No care Complications Other (Help syndrome) Augmentation: No Induction: No Rupture of Membranes: No Condition on Discharge Physical Assessment Last Vitals: Vital Signs Date Time Temp Pulse Resp B/P Pulse Ox O2 Delivery O2 Flow Rate FiO2 09/07/16 09:15 98.2 78 18 142/89 Room Air 09/04/16 17:30 100 09/03/16 11:00 1.0 Voiding: Yes Bowel Movement: Yes Breast: Soft, non-tender Fundus: Firm Abdomen and Incision: Incision clean dry and intact Evidence of ecchymosis in the upper and lower side of the incision as well as over the mons pubis Episiotomy: N/A Calf Tenderness: No Patient Condition: Good TIFF CHURCHILL MD Sep 07, 2016 13:07
[2016-09-07 14:18] VITALS: BP 167/89; PULSE 103; RESP 20
[2016-09-07 15:30] VITALS: BP 123/76; PULSE 75; RESP 16
--- NOTE | 2016-09-08 11:10 | OPR ---
DATE OF OPERATION: PREOPERATIVE DIAGNOSES: 1. Intrauterine at 33-1/2 weeks. 2. Severe preeclampsia/HELLP syndrome. 3. History of section x 3 and desires repeat. POSTOPERATIVE DIAGNOSIS: 1. Intrauterine at 33-1/2 weeks. 2. Severe preeclampsia/HELLP syndrome. 3. History of section x 3 and desires repeat. PROCEDURE: Repeat low segment transverse section. SURGEON: Cristofer Richardson MD JEWELER APPRENTICE: . ESTIMATED BLOOD LOSS: 700. COMPLICATIONS: None. SPECIMEN: Placenta. INDICATIONS: The patient is a 36-year-old who presented at 33-1/2 weeks with epigastric pain. The patient was diagnosed with severe PIH/HELLP syndrome with elevated LFTs and low platelets. Blood pressure was 260/160. The patient was given several doses of labetalol and hydralazine for blood pressure, started on magnesium sulfate, and given a dose of betamethasone. At this point, the patient was consented for repeat section. Risks and benefits discussed including infection, bleeding, damage to organs, possibility of blood transfusions all discussed with patient. The patient understood the risks and consented to the procedure. PROCEDURE IN DETAIL: The patient was taken to the operating room where her spinal was found be adequate. The patient was then prepped and draped in normal sterile fashion. . Using a scalpel, a Pfannenstiel incision was made. Incision was taken down to the underlying fascia. The fascia was nicked in the midline and extended, taken off the rectus muscle superiorly with sharp dissection. identified, entered bluntly. The peritoneum was then entered. Peritoneal incision was extended superiorly and inferiorly. Bladder flap was created, bladder flap taken down. Uterine incision made. Incision was then extended with . The infant was then delivered atraumatically and bulb suctioned at peritoneum. Thirty seconds of delayed cord clamping was performed. Cord clamped and cut. Cord gases taken. Cord blood taken. Placenta delivered. Uterus exteriorized, cleared of all blood clots and debris. Uterine incision was closed with 0 Monocryl in a running. A second imbricated layer was also placed. The uterus was placed back in the abdominal cavity. Blood was cleared from the gutters. At this point, there was some bleeding noted on the rectus muscle on the patient's right side. Some 0 Monocryl was used to control the bleeding, and also some oozing was noted in the upper quadrant of the rectus muscle on the patient's right side. Bovie, Surgifoam and also some Surgicel was placed in this area to control the hemostasis. Good hemostasis was noted post this. The using a 2-0 Vicryl. The fascia was closed with 0 Vicryl. The subcu fat was closed with 2-0 plain, and skin was closed with marbin. The patient tolerated the procedure well. correct x 2 and patient was stable to recovery. Dictated By: Cristofer Richardson MD /juana/ec /Document#: [id number]
== END 2016-09-07 20:20 | disposition home or self-care (01) | DRG 765 ==
LOC: L-D 20:38 → OBT 20:38 → L-D 22:18 → ICU 09-03 03:02 → PP1 09-04 18:01
PROC: 10D00Z1 Extraction of Products of Conception, Low, Open Approach (ICD-10-PCS; principal; 2016-09-03)
DX: O60.14X0 Preterm labor third trimester with preterm delivery third trimester, not applicable or unspecified (principal); O99.12 Other diseases of the blood and blood-forming organs and certain disorders involving the immune mechanism complicating childbirth; O34.211 Maternal care for low transverse scar from previous cesarean delivery; O14.24 HELLP syndrome, complicating childbirth; O99.02 Anemia complicating childbirth; O13.4 Gestational [pregnancy-induced] hypertension without significant proteinuria, complicating childbirth; R51 Headache; Z3A.33 33 weeks gestation of pregnancy; Z37.0 Single live birth
CPT/HCPCS: 36415; 36600; 71010; 76700; 76815; 76818; 80048; 80053; 80307; 81001; 81003; 82043; 82803; 83540; 83615; 83735; 84100; 84155; 84300; 84560; 85025; 85610; 85730; 86592; 86703; 86762; 86850; 86900; 86901; 86920; 87081; 87340; 88307; 89190; 93005; 96360; 99464; G0463; J0360; J0702; J1100; J1885; J1940; J2274; J2370; J2405; J2590; J2765; J3475; J7030; J7040; J7120; P9047

== ENCOUNTER 2016-09-19 19:24 | Emergency (ER) | payer OTHER ==
[~2016-09-19] VITALS: Ht 162.6 cm; Wt 76.0 kg
[2016-09-19 19:29] VITALS: Ht 162.6 cm; Wt 76.0 kg
--- NOTE | 2016-09-19 23:15 | QN ---
Documentation Comment post c/s 2weeks here for removal of stapples since no DR abdomen soft wound healing ok with erythematous change on skin only due to proloned retaining stapples no induration or tenderness stapples removed advise to dry airation MIRZA REY MD Sep 19, 2016 23:15
--- NOTE | 2016-09-21 15:32 | ERD ---
ER Documentation Chief Complaint Date/Time DATE: 09/21/16 TIME: 15:27 Chief Complaint for staple removal, c section site HPI This is a 36-year-old female presenting to the emergency department for staple removal of a incision site. Patient had a on September [address] Richardson on and has been trying to follow-up with a woman's clinic but they stated for her to follow-up with the surgeon however does not have a clinic. Patient states that it is mildly irritated. She denies any fevers. She rates this mild in severity ROS All systems reviewed and are negative except as per history of present illness. Medications Home Meds No Active Prescriptions or Reported Meds Allergies Allergies: Coded Allergies: No Known Allergy (Verified , 05/31/16) PMhx/Soc History of Surgery: Yes (csection) Anesthesia Reaction: No Hx Neurological Disorder: No Hx Respiratory Disorders: No Hx Psychiatric Problems: No Hx Miscellaneous Medical Probl: No Hx Alcohol Use: No Hx Substance Use: No Hx Tobacco Use: No Smoking Status: Never smoker Physical Exam Vitals Vital Signs Date Time Temp Pulse Resp B/P Pulse Ox O2 Delivery O2 Flow Rate FiO2 09/19/16 19:29 97.4 96 20 165/90 100 Physical Exam General: WD/WN, in no apparent distress, non-toxic appearing HENT: NC/AT Eyes: Conjunctiva normal Neck: Supple Pulm: Clear to auscultation, normal labored breathing; no wheezing/rales/ rhonchi heard CV: Good capillary refill GI: Non-distended, no guarding Back: No masses Ext: No clubbing, cyanosis, or edema Neuro: Moves on all fours Skin: Marbin along the incision site with irritation, no induration or purulence Psych: Normal mood Procedures/MDM This is a 36-year-old female presenting to the emergency department for staple removal and for section that was done about 1 month prior to being seen with , patient did not have proper follow-up since he does not have a clinic. I have consulted the UNDERWRITING ASSISTANT on site , who has evaluated the patient and removed the marbin. has given instructions for proper hygiene. Patient has no evidence of cellulitis. Patient stable to be discharged home with precautions to return to emergency department for any worsening signs or symptoms. She understands and agrees with plan Departure Diagnosis: Primary Impression: Encounter for removal of marbin Condition: Stable Patient Instructions: Staple Removal, No Complication Additional Instructions: FOLLOW UP WITH YOUR PRIMARY CARE PHYSICIAN TOMORROW.Return to this facility if you are not improving as expected. Return to this facility if you are not improving as expected. PAPI BRUMFIELD PA-C Sep 21, 2016 15:32
== END 2016-09-19 23:19 | disposition home or self-care (01) ==
LOC: FTE 19:24
DX: Z48.02 Encounter for removal of sutures (principal)
CPT/HCPCS: 99281